=== PATIENT | female | born 1965 | race Caucasian/White ===

== ENCOUNTER 2019-05-14 07:30 | Day surgery (SDC) | payer MEDICAID, SELFPAY ==
[2019-05-13 14:29] VITALS: BMI 31.6
[2019-05-13 14:32] VITALS: BMI 33.3
--- NOTE | 2019-05-14 08:26 | ANES.PREANES ---
Pre-Anesthetic Assessment Pre-Anesthetic Assessment: Height/Weight: Height 1.63 m Weight 87.997 kg Preop Diagnosis: red blood per rectum Proposed Procedure: Operation Date: 05/14/19 08:45 Proposed Procedures p Colonoscopy(Not Applicable) - Layo Aldana MD Last intake: Intake Last Liquid Date 05/13/19 Last Liquid Time 23:30 Last Solid Date 05/12/19 Social: Social History: Tobacco Packs per day: 1 ppd Pack years: 30 years Exam: Pre-Anes Outpt Exam: alert, oriented x 3, clear to auscultation bilaterally and regular rate & rhythm Airway: Submandibular: WNL Cervical ROM: WNL MP: 2 Dentition: Chipped Additional comments: some missing with upper plate History/ROS: Other Pulmonary: Pulmonary: COPD, Sleep apnea and SOB CV/HEM: CV/HEM: HTN : : None reported Hepatic: Hepatic: None reported GI: GI: None reported Metabolic: Metabolic: DM (type II) and Hyperlipidemia Musc/skel: Musc/skel: Lower Back Pain (DJD) and OA/DJD Neuropsych: Neuropsych: None reported Anesthetic Plan: ASA status: II Anesthesia: MAC Risk of > 500 ml blood loss (7ml/kg in children): No PFSH Anesthesia PFSH: Social History (Updated 05/13/19 @ 14:23 by Kerri Marquez RN) Smoking and tobacco status: current every day smoker Data Anesthesia Cardiac Studies: No Data to Display
[2019-05-14] MEDS: sodium chloride 0.9% 1,000 ML 30 ML (08:30)
[2019-05-14 08:36] LABS: Glucose Point of Care 149 mg/dL (70-110)
--- NOTE | 2019-05-14 08:44 | PM.HPUD ---
H&P update H&P Update: DATE OF SURGERY/PROCEDURE: 05/14/19 DATE H&P PERFORMED: 04/17/19 H&P UPDATE INFORMATION: H&P completed within last 30 days, No changes to prior documentation and H&P to be scanned into chart PREOP DIAGNOSIS: Screening colonoscopy PLANNED PROCEDURE: Operation Date: 05/14/19 08:45 Proposed Procedures p Colonoscopy(Not Applicable) - Layo Aldana MD Full H&P Perinent History: Social History: Social History Smoking and tobacco status: current every day smoker
[2019-05-14 09:14] VITALS: BP 98/66; PULSE 81; RESP 18; TEMP 36.4; O2SAT 95
--- NOTE | 2019-05-14 09:19 | ANE.PACU ---
 Inpatient post-anesthesia follow up: Airway intact: Yes Vital signs: Temperature Pulse Rate Respiratory Rate Blood Pressure Pulse Oximetry Oxygen Delivery Me thod Oxygen Flow Rate Fraction of Inspir ed Oxygen Hydration adequate: Yes Nausea and vomiting: No Pain level: 1 Mental status: Baseline
[2019-05-14 09:39] VITALS: BP 109/69; PULSE 81; RESP 18; O2SAT 93
== END 2019-05-14 10:02 | disposition home or self-care (01) ==
PROVIDERS: Family Provider Family Medicine; PCP Family Medicine; Visit Provider Surgery
PROC: 0DJD8ZZ Inspection of Lower Intestinal Tract, Via Natural or Artificial Opening Endoscopic (ICD-10-PCS; CPT 45378; principal; 2019-05-14 08:45)
DX: K62.5 Hemorrhage of anus and rectum (principal); K57.30 Diverticulosis of large intestine without perforation or abscess without bleeding; D12.8 Benign neoplasm of rectum; F17.210 Nicotine dependence, cigarettes, uncomplicated; J44.9 Chronic obstructive pulmonary disease, unspecified; G47.30 Sleep apnea, unspecified; I10 Essential (primary) hypertension; E11.9 Type 2 diabetes mellitus without complications; E78.5 Hyperlipidemia, unspecified; M19.90 Unspecified osteoarthritis, unspecified site
CPT/HCPCS: 12345; 36416; 45380; 82962; 88305; 96365; J2704; J7030

== ENCOUNTER → 2019-06-03 15:26 | Outpatient (BNVA) | payer MEDICAID, SELFPAY | PROVIDERS: Family Provider Family Medicine; PCP Family Medicine; Visit Provider Family Medicine | DX: E11.9 Type 2 diabetes mellitus without complications (principal); I10 Essential (primary) hypertension; R74.8 Abnormal levels of other serum enzymes | CPT/HCPCS: 80053; 80074 ==

== ENCOUNTER → 2019-07-02 14:50 | Outpatient (BNVA) | payer MEDICAID, SELFPAY | PROVIDERS: Family Provider Family Medicine; PCP Family Medicine; Visit Provider Family Medicine | DX: I10 Essential (primary) hypertension (principal); G47.00 Insomnia, unspecified; E11.9 Type 2 diabetes mellitus without complications | CPT/HCPCS: 80048 ==

== ENCOUNTER → 2020-01-13 14:32 | Outpatient (BNVA) | payer MEDICAID, SELFPAY | PROVIDERS: Family Provider Family Medicine; PCP Family Medicine; Visit Provider Family Medicine | DX: R05 Cough (principal); Z20.828 Contact with and (suspected) exposure to other viral communicable diseases | CPT/HCPCS: 87635 ==

== ENCOUNTER 2020-05-01 12:16 | Emergency (ER) | payer MEDICAID, SELFPAY ==
[2020-05-01 12:23] VITALS: BP 116/81; PULSE 124; RESP 20; TEMP 36.4; O2SAT 99; BMI 32.4
--- NOTE | 2020-05-01 13:05 | ED_ITS ---
HPI - SOB/Dyspnea General: Chief Complaint: Shortness of Breath/Dyspnea Stated Complaint: cough sob/dx'd with bronchitis Time Seen by Provider: 05/01/20 12:55 Source: patient Mode of arrival: ambulatory History of Present Illness: HPI Narrative: 54-year-old female presents to the emergency room chief complaint of shortness of breath is been ongoing progressive getting worse over the last 5 to 7 days. The patient was recently seen at outside urgent care diagnosed with bronchitis started on steroids and antibiotics. Patient reports no improvement of her symptoms. Patient does have a history of smoking history of COPD reports no underlying cardiac history. Patient reports mild productivity of her cough reports yellowish clear sputum production. Reports no palpitations or chest pain with her discomfort. Patient reports lysed malaise and fatigue and generalized weakness. MD elicited complaint: shortness of breath and cough Pertinent past history: COPD Relieving factors: nothing Known history of: COPD and recurrent pneumonia Associated symptoms: Deny abdominal pain, chest pain, extremity pain, fever(s), nausea, palpitations or vomiting Related Data: Home oxygen amount: none Review of Systems General: Reports: 10 or more systems reviewed and unremarkable except in HPI and below Const: Reports: fatigue and malaise; Denies: fever(s) or chills Eyes: Denies: change in vision or blurry vision Card: Denies: chest pain or palpitations Resp: Reports: dyspnea, productive cough, wheezing and change in phlegm color GI: Denies: abdominal pain, nausea or vomiting : Denies: flank pain Musc: Denies: extremity pain or extremity swelling Skin/Breast: Denies: rash or pruritus Neuro: Denies: headache(s) Psych: Denies: anxiety or depression [place]/Lymph: Denies: easy bleeding All/Imm: Denies: urticaria, throat swelling or facial swelling PFSH ED PFSH: Medical History Chronic back pain COPD (chronic obstructive pulmonary disease) COPD (chronic obstructive pulmonary disease) with acute bronchitis Diabetes mellitus, without long-term current use of insulin History of colon polyps Hypertension Insomnia Lumbar spondylolysis Lumbosacral spondylosis with radiculopathy Spondylolisthesis, lumbosacral region Surgical History H/O section x3 Family History Other CAD (coronary artery disease) Diabetes Hypertension Stroke Social History Smoking and tobacco status: current every day smoker cigarettes Packs smoked per day: 1 Alcohol intake: never Marital status: Single Current occupational status: disabled History of recent travel: No Deja/Judaism: Denominational Physical Exam Narrative: EXAM NARRATIVE: On exam patient is mild to moderate inspiratory expiratory wheezing mild tachypnea appreciated patient who appears nontoxic. Const: COMMON NORMALS: patient oriented x3 EXAM LIMITATIONS: altered mental status GENERAL APPEARANCE: cooperative, well developed and anxious HENMT: COMMON NORMALS: normocephalic and atraumatic HEAD & SCALP: normocephalic and atraumatic Eye: COMMON NORMALS: Equal, round and reactive pupils present and EOMs intact bilaterally GENERAL EYE: appearance normal, both eyes and all related structures PUPIL: Yes Equal, round and reactive pupils present Neck/C-Spine: COMMON NORMALS: full ROM, supple and no JVD Lymph: LYMPHATIC: no lymphadenopathy noted Chest: COMMONS NORMALS: normal inspection of the chest Resp: COMMON NORMALS: normal respiratory effort, No retractions and clear to auscultation bilaterally EFFORT & INSPECTION: Yes able to speak in complete sentences and Yes symmetric chest movement AUSCULTATION: clear to auscultation bilaterally, wheezes (Bilateral inspiratory expiratory wheezing noted bilaterally scant) expiratory wheezes, inspiratory wheezes and scattered wheezes and diminished lung sounds (Diminished breath sounds appreciated bilaterally with scant inspiratory and) bilateral and diffuse Cardio: COMMON NORMALS: no JVD, regular rate and regular rhythm RATE: regular rate RHYTHM: regular rhythm GI: COMMON NORMALS: Normal to inspection, nondistended, normoactive bowel sounds present, Soft to palpation and non-tender INSPECTION: Yes normal to inspection PALPATION: Yes Soft to palpation : COMMON NORMALS: Yes no CVA tenderness BLADDER/KIDNEY EXAM: Yes no CVA tenderness Back/Pelvis: COMMON NORMALS: no CVA tenderness Extremity: COMMON NORMALS: normal to inspection and full ROM Neuro: COMMON NORMALS: patient oriented x3, CN's II-XII intact bilaterally, moves all extremities and no focal motor deficits Psych: COMMON NORMALS: mental status grossly normal, Normal thought process present, cooperative, normal affect and speech normal SPEECH: Yes normal speech THOUGHT PROCESS: Normal thought process present Skin: COMMON NORMALS: no rashes or lesions noted GENERAL SKIN EXAM: no rashes or lesions noted Course Vital Signs: Vital signs: Vital Signs Temperature 97.6 F 05/01/20 12:23 Pulse Rate 100 05/01/20 13:34 Respiratory Rate 20 H 05/01/20 13:25 Blood Pressure 116/81 05/01/20 12:23 Pulse Oximetry 97 05/01/20 13:25 MDM - SOB/Dyspnea MDM Narrative: Medical decision making narrative: Due to patient's symptoms and condition IV was established lab work and imaging was obtained patient was provided medications for her wheezing will continue to follow the full earlier rule out COPD exacerbation versus acute bronchitis versus pneumonia versus other . Patient was not found to have pneumonia appears to be bronchitis she was found to be somewhat hyponatremic however her blood sugar was 340 she reported she did not take her medications for her diabetes and what she has been on steroids recently which may be contributing to hyperglycemia patient was subsequently discharged home advised to follow-up with primary care in 3 to 5 days and to return in the interim if any of her symptoms persist or worse. Differential Diagnosis: Shortness of Breath Differential Diagnosis: Likely acute exacerbation of chronic obstructive airways disease, community acquired pneumonia and asthma with exacerbation Medical Records: Attestation: I reviewed the patient's medical records. Lab Data: Attestation: I reviewed the patient's lab results. Labs: Lab Results 05/01/20 05/01/20 05/01/20 Range/Units 15:47 15:47 15:47 WBC 12.5 H (4.0-10.0) 10^3/ uL RBC 5.47 H (4.1-5.3) 10^6/u L Hgb 17.0 H (11.5-15.3) g/dL Hct 48.4 H (37.0-47.0) % MCV 88.5 (81-99) fL MCH 31.1 (28.0-34.0) pg MCHC 35.1 (30.0-36.0) g/dL RDW 12.1 (12.1-15.1) % Plt Count 196 (130-400) 10^3/c mm MPV 12.6 H (7.4-10.4) fL Neut % (Auto) 46.1 % Lymph % (Auto) 45.8 % [place] % (Auto) 6.7 % Eos % (Auto) 0.6 % Baso % (Auto) 0.4 % Neut # (Auto) 5.79 (1.8-7.7) 10^3/u L Lymph # (Auto) 5.7 H (0.8-4.8) 10^3/u L [place] # (Auto) 0.8 (0.2-0.9) 10^3/u L Eos # (Auto) 0.1 (0.0-0.8) 10^3/u L Baso # (Auto) 0.1 (0.0-0.1) 10^3/u L Nucleated RBC % (a uto) 0 % Nucleated RBCs # 0.0 /100WBC Sodium Cancelled Potassium Cancelled Chloride Cancelled Carbon Dioxide Cancelled Anion Gap Cancelled BUN Cancelled Creatinine Cancelled GFR Calculation Cancelled Glucose Cancelled Calculated Osmolal ity Cancelled Calcium Cancelled Total Bilirubin Cancelled AST Cancelled ALT Cancelled Alkaline Phosphata se Cancelled Lactate Dehydrogen ase Cancelled Troponin T Baselin e Cancelled C-Reactive Protein Cancelled Total Protein Cancelled Albumin Cancelled Globulin Cancelled 05/01/20 05/01/20 Range/Units 16:15 16:15 WBC (4.0-10.0) 10^3/ uL RBC (4.1-5.3) 10^6/u L Hgb (11.5-15.3) g/dL Hct (37.0-47.0) % MCV (81-99) fL MCH (28.0-34.0) pg MCHC (30.0-36.0) g/dL RDW (12.1-15.1) % Plt Count (130-400) 10^3/c mm MPV (7.4-10.4) fL Neut % (Auto) % Lymph % (Auto) % [place] % (Auto) % Eos % (Auto) % Baso % (Auto) % Neut # (Auto) (1.8-7.7) 10^3/u L Lymph # (Auto) (0.8-4.8) 10^3/u L [place] # (Auto) (0.2-0.9) 10^3/u L Eos # (Auto) (0.0-0.8) 10^3/u L Baso # (Auto) (0.0-0.1) 10^3/u L Nucleated RBC % (a uto) % Nucleated RBCs # /100WBC Sodium 128 L Potassium 4.5 Chloride 94 L Carbon Dioxide 24 Anion Gap 14.5 BUN 15 Creatinine 0.5 GFR Calculation 129.6 Glucose 341 H Calculated Osmolal ity 280 L Calcium 8.8 Total Bilirubin 0.6 AST 25 ALT 24 Alkaline Phosphata se 117 H Lactate Dehydrogen ase 216 H Troponin T Baselin e 6 C-Reactive Protein 13.8 H Total Protein 6.5 L Albumin 3.5 Globulin 3.0 Discharge Plan Discharge Patient Disposition: Home Clinical Impression: Acute bronchitis with wheezing, Hyponatremia Condition: Stable Prescriptions: New Ventolin HFA 90 mcg/actuation HFA aerosol inhaler 1 inh inhalation Q6H PRN (Reason: shortness of breath or wheezing) Qty: 6.7 RF: 0 prednisone 20 mg tablet 20 mg PO BID 7 Days Qty: 14 RF: 0 Tessalon Perles 100 mg capsule 100 mg PO TID PRN (Reason: cough) Qty: 20 RF: 0 No Action albuterol sulfate 90 mcg/actuation HFA aerosol inhaler 2 puff inhalation Q6H PRN (Reason: shortness of breath or wheezing) Qty: 8.5 RF: 0 fluticasone propion-salmeterol [Advair Diskus] 250-50 mcg/dose blister with device 1 inh inhalation BID Qty: 60 RF: 1 Tylenol Extra Strength 500 mg Tablet 1,000 mg PO PRN RF: 0 amitriptyline 50 mg tablet 50 mg PO DAILY@22 RF: 0 lisinopril 40 mg tablet 40 mg PO DAILY@22 RF: 0 metformin 500 mg tablet extended release 24 hr 1,000 mg PO BID@, RF: 0 hydrochlorothiazide 12.5 mg tablet 12.5 mg PO DAILY@22 RF: 0 Discharge Orders: Discharge ED (Routine); Ordered 05/01/20 Ordered By: Chao Reynoso Referrals: Viviana Pringle DO [Primary Care Provider] - 4-7 days Patient Instructions: Hyponatremia, Acute Bronchitis (ED) Activity Restrictions/Additional Instructions: Follow-up with primary care in 3 to 5 days take medications as prescribed and return in the interim if any of her symptoms persist or worsen Coding Level of Care Code ED Parking Meter Collector for Chg Fwd Exam Comprehensive
[2020-05-01 13:25] VITALS: PULSE 107; RESP 20; O2SAT 97
[2020-05-01 13:34] VITALS: PULSE 100
[2020-05-01] MEDS: ipratropium-albuterol 3 mL Neb INHALATION (13:34)
--- NOTE | 2020-05-01 13:37 | XRR_ITS ---
PROCEDURE INFORMATION: Exam: XR Chest, 2 Views Exam date and time: 05/01/2020 2:04 PM Age: 54 years old Clinical indication: Shortness of breath; Additional info: SOB TECHNIQUE: Imaging protocol: XR of the chest Views: 2 views. COMPARISON: CR Chest 2 views* [id number] 11/17/2014 5:21 PM FINDINGS: Lungs: Hyperinflation and interstitial prominence without acute infiltrate. Pleural space: No pleural effusion. Heart/Mediastinum: No cardiomegaly. Bones/joints: Degenerative change. XR/XR chest 2V* [id number] IMPRESSION: Hyperinflation and interstitial prominence without acute infiltrate.
[2020-05-01] MEDS: sodium chloride 0.9% 1,000 ML 999 ML IV (13:59)
--- NOTE | 2020-05-01 15:04 | ECG_ITS ---
[facility] Test Date: 2020-05-01 Pat Name: Ciera Villaseñor Department: Room: Gender: Female Hair Assistant: : 1965 Requested By: Chao Reynoso Order Number: [id number] Irma MD: Clark Garcia M.D. Measurements Intervals [place] Rate: 120 P: 60 TN: 152 QRS: -28 QRSD: 84 T: 47 QT: 306 QTc: 432 Interpretive Statements SINUS TACHYCARDIA Compared to ECG 11/17/2014 16:58:41 Sinus rhythm no longer present Electronically Signed On 05-01-2020 17:59:14 ORDER SELECTOR by Clark Garcia M.D. [id number] f
[2020-05-01 16:02] LABS: Basophils # 0.1 10^3/uL (0.0-0.1); Basophils % 0.4 %; Eosinophils # 0.1 10^3/uL (0.0-0.8); Eosinophils % 0.6 %; Hematocrit 48.4 % (37.0-47.0); Lymphocytes # 5.7 10^3/uL (0.8-4.8); Lymphocytes % 45.8 %; Mean Corpuscular HGB Conc 35.1 g/dL (30.0-36.0); Mean Corpuscular Hemoglobin 31.1 pg (28.0-34.0); Mean Corpuscular Volume 88.5 fL (81-99); Mean Platelet Volume 12.6 fL (7.4-10.4); Monocytes # 0.8 10^3/uL (0.2-0.9); Monocytes % 6.7 %; Neutrophils # 5.79 10^3/uL (1.8-7.7); Neutrophils % 46.1 %; Nucleated Red Blood Cells % 0 %; Platelet Count 196 10^3/cmm (130-400); Red Blood Count 5.47 10^6/uL (4.1-5.3); Red Cell Distribution Width 12.1 % (12.1-15.1); White Blood Count 12.5 10^3/uL (4.0-10.0)
[2020-05-01 16:34] LABS: Slide Review Slide Review Perform
[2020-05-01 16:38] LABS: Albumin Level 3.5 g/dL (3.5-5.2); Alkaline Phosphatase 117 IU/L (35-105); Blood Urea Nitrogen 15 mg/dL (6-20); C Reactive Protein 13.8 mg/L (0.0-4.9); Calcium 8.8 mg/dL (8.5-10.5); Carbon Dioxide 24 mmol/L (22-29); Chloride 94 mmol/L (98-107); Glomerular Filtration Rate 129.6 mL/min (90-130); Glucose 341 mg/dL (65-115); Osmolality Calculated 280 mOsm/kg (285-295); Sodium 128 mmol/L (136-145); Total Bilirubin 0.6 mg/dL (0.15-1.2); Total Protein 6.5 g/dL (6.6-8.7)
[2020-05-01 16:39] LABS: Alanine Aminotransferase 24 U/L (0-33); Anion Gap 14.5 (5-19); Aspartate Amino Transferase 25 U/L (0-32); Lactate Dehydrogenase 216 U/L (135-214); Potassium 4.5 mmol/L (3.5-5.1)
[2020-05-01 16:40] LABS: Troponin(5th) Baseline 6 ng/L (0-10)
[2020-05-01 18:28] LABS: Troponin 5 2HR Delta 0 ABS# (0-10)
[2020-05-01 18:29] VITALS: BP 166/61; PULSE 72; RESP 16; O2SAT 96
== END 2020-05-01 18:10 | disposition home or self-care (01) ==
PROVIDERS: Emergency Provider Emergency Medicine; PCP Family Medicine
DX: J44.0 Chronic obstructive pulmonary disease with (acute) lower respiratory infection (principal); J20.9 Acute bronchitis, unspecified; E87.1 Hypo-osmolality and hyponatremia; Z79.84 Long term (current) use of oral hypoglycemic drugs; E11.9 Type 2 diabetes mellitus without complications; I10 Essential (primary) hypertension; F17.210 Nicotine dependence, cigarettes, uncomplicated
CPT/HCPCS: 12345; 36415; 71046; 80053; 83615; 84484; 85025; 86140; 93005; 94640; 96361; 96374; 99282; 99285; J2930; J7030

== ENCOUNTER → 2020-06-21 14:17 | Outpatient (BNVA) | payer MEDICAID, SELFPAY | PROVIDERS: PCP Family Medicine; Visit Provider Family Medicine | DX: R73.9 Hyperglycemia, unspecified (principal); R25.2 Cramp and spasm | CPT/HCPCS: 80053; 83036 ==

== ENCOUNTER 2020-08-02 09:20 | Outpatient (CLI) | payer MEDICAID, SELFPAY ==
--- NOTE | 2020-08-02 09:31 | XR_ITS ---
WS: [id number] ABDOMEN 1 VIEW(S) HISTORY: left flank pain COMPARISON: None available. Normal bowel gas pattern. No calcifications associated with the urological system. Vascular calcifications in the iliac arterie s. There is dense iliolumbar ligament ossification bilaterally at L5. XR/XR KUB [id number] IMPRESSION: 1. No urological calcifications. 2. Mild iliac artery atherosclerosis. 3. Dense bilateral iliolumbar ligament ossification at L5.
== END 2020-08-02 09:21 | disposition home or self-care (01) ==
PROVIDERS: PCP Family Medicine; Visit Provider Family Medicine
DX: R10.9 Unspecified abdominal pain (principal); I70.8 Atherosclerosis of other arteries; M67.88 Other specified disorders of synovium and tendon, other site
CPT/HCPCS: 74018; 80053; 80061; 81000; 81015; 82043; 85025; 87077; 87086; 87184

== ENCOUNTER → 2020-09-13 08:29 | Outpatient (BNVA) | payer MEDICARE, MEDICAID, SELFPAY | PROVIDERS: PCP Family Medicine; Visit Provider Family Medicine | DX: I10 Essential (primary) hypertension (principal); E78.5 Hyperlipidemia, unspecified; E11.9 Type 2 diabetes mellitus without complications; M47.27 Other spondylosis with radiculopathy, lumbosacral region; F17.219 Nicotine dependence, cigarettes, with unspecified nicotine-induced disorders | CPT/HCPCS: 80053; 80061; 82043; 83036; 85025 ==

== ENCOUNTER → 2020-09-23 15:12 | Outpatient (BNVA) | payer MEDICARE, MEDICAID, SELFPAY | PROVIDERS: PCP Family Medicine; Referring Provider Family Medicine; Visit Provider Orthopaedic Surgery | DX: M43.17 Spondylolisthesis, lumbosacral region (principal); M54.9 Dorsalgia, unspecified; G89.29 Other chronic pain; M48.061 Spinal stenosis, lumbar region without neurogenic claudication | CPT/HCPCS: 72110 ==

== ENCOUNTER → 2020-10-18 11:21 | Outpatient (BNVA) | payer MEDICARE, MEDICAID, SELFPAY | PROVIDERS: PCP Family Medicine; Visit Provider Family Medicine | DX: Z01.818 Encounter for other preprocedural examination (principal); Z20.822 Contact with and (suspected) exposure to COVID-19 | CPT/HCPCS: 80053; 85025; 87635 ==

== ENCOUNTER 2020-10-25 10:41 | Observation (INO) | payer MEDICARE, MEDICAID, SELFPAY ==
[2020-10-22 11:31] VITALS: BMI 30.6
--- NOTE | 2020-10-22 11:40 | P.ANESASSM_ITS ---
Pre-Anesthetic Assessment Pre-Anesthetic Assessment: Height/Weight: Height 1.6 m Weight 78.471 kg Preop Diagnosis: Low back pain Proposed Procedure: Operation Date: 10/25/20 10:00 Proposed Procedures p Posterior Lumbar Interbody Fusion [id number] [id number] M43.17(Not Applicable) - Kvng Mitchell DO Familial anesthetic complications: No Social: Social History: Tobacco and No alcohol Exam: Pre-Anes Outpt Exam: alert, oriented x 3, clear to auscultation bilaterally and regular rate & rhythm Airway: Cervical ROM: WNL MP: 3 Dentition: Loose (one on bottom) and Other (top plate) Pulmonary: Pulmonary: COPD CV/HEM: CV/HEM: HTN Comments: achieving 4 METS limited by back pain Metabolic: Metabolic: DM and Hyperlipidemia Musc/skel: Musc/skel: Lower Back Pain Anesthetic Plan: ASA status: 3 Anesthesia: General Risk of > 500 ml blood loss (7ml/kg in children): No PFSH Anesthesia PFSH: Medical History Chronic back pain COPD (chronic obstructive pulmonary disease) COPD (chronic obstructive pulmonary disease) with acute bronchitis Diabetes mellitus, without long-term current use of insulin Dyslipidemia History of colon polyps Hypertension Insomnia Lumbar spondylolysis Lumbosacral spondylosis with radiculopathy Spondylolisthesis, lumbosacral region Surgical History H/O section x3 Family History Other CAD (coronary artery disease) Diabetes Hypertension Stroke Social History Smoking and tobacco status: current every day smoker cigarettes Packs smoked per day: 1 Alcohol intake: never Marital status: Single Current occupational status: disabled History of recent travel: No Deja/Orthodoxy: Mosque Female Reproductive History: Date of last menstrual period: 10/18/16 Data Anesthesia Cardiac Studies: No Data to Display
[2020-10-25] VITALS (19 sets, daily range): BP systolic 84–131; BP diastolic 50–80; PULSE 81–107; RESP 16–20; TEMP 36.2–36.9; O2SAT 92–100
--- NOTE | 2020-10-25 | XR_ITS ---
WS: [id number] INTRAOPERATIVE TECHNIQUE: 3 Spot fluoroscopic images for intraoperative purposes. FLUOROSCOPY TIME: 20 seconds CLINICAL INFORMATION: OR PICS COMPARISON: None. FINDINGS: AP localizer at L5-S1. Pedicle screw fixation L5-S1 with interbody fusion graft. Localization markers overlying the S1 and S2 vertebral bodies. Grade 2 anterolisthesis L5 on S1. IMPRESSION: Images obtained for intraoperative purposes.
--- NOTE | 2020-10-25 | SCC_ITS ---
Procedure Done: 1. L5/S1 Interbody fusion with posterolateral fusion 2. Instrumentation L5/S1 3. Cage at L5/S1 4. Laminectomy L5 5. use of autograft from same incision 6. allograft 7. Bone marrow aspirate from right iliac crest 8. Use of spine navigation computer assisted/ stereotactic 20 seconds of fluoroscopic guidance, for a cumulative dose of 44.7 mGy, was provided to Dr. Mitchell by the radiology department. C-arm images of the lumbar spine were saved for the patient's permanent record. ANGEL
[2020-10-25] MEDS: sodium chloride 0.9% 1,000 ML 30 ML IV (06:30)
--- NOTE | 2020-10-25 06:38 | P.ANESUD_ITS ---
Pre-Anesthetic Update Pre-Anesthetic Assessment: Date of Surgery/Procedure: 10/25/20 Preop Cheryl gnosis: Low back pain Proposed Procedure: Operation Date: 10/25/20 07:05 Proposed Procedures p Posterior Lumbar Interbody Fusion [id number] [id number] [id number] M43.17(Not Applicable) - Kvng Mitchell, DO Any changes to Pre-Anesthetic Assessment?: No Last Intake: Intake Last Liquid Date 10/24/20 Last Liquid Time 22:30 Last Solid Date 10/24/20 Last Solid Time 22:30 Vitals: Temperature 97.2 F L 10/25/20 06:14 Temperature Source Temporal Artery S can 10/25/20 06:14 Pulse Rate 97 10/25/20 06:14 Respiratory Rate 18 10/25/20 06:14 Blood Pressure 106/75 10/25/20 06:14 Blood Pressure Leora n 85 10/25/20 06:14 Pulse Oximetry 96 10/25/20 06:14 Oxygen Delivery Me thod 10/25/20 06:14 Exam: Pre-Anes Outpt Exam: alert, oriented x 3, clear to auscultation bilaterally and regular rate & rhythm Cardiac Studies: No Data to Display
[2020-10-25 06:44] LABS: Glucose Point of Care 148 mg/dL (70-110)
--- NOTE | 2020-10-25 06:48 | W.PM.OPSUD ---
Surgery/Procedure H&P Update DATE OF PROCEDURE: October 25, 2020 DATE H&P PERFORMED: 10/25/20 PREOP DIAGNOSIS: Low back pain PLANNED PROCEDURE: Operation Date: 10/25/20 07:05 Proposed Procedures p Posterior Lumbar Interbody Fusion [id number] [id number] M43.17(Not Applicable) - Kvng Mitchell DO
--- NOTE | 2020-10-25 06:50 | P.HP_ITS ---
Providers/Chief Complaint Primary Care Provider: Viviana Pringle DO Chief Complaint: plif History of Present Illness Ciera Villaseñor is a 54 year old female 54 year old female patient here for evaluation of her low back pain. Onset: [gradual] Duration: [years] Characteristics: [sharp, dull, aching] Severity: [moderate] Location: [low back] Radiating symptoms: [right lateral thigh] Aggravating factors: [standing, walking, bending, stooping, sitting] Alleviating factors: [repositioning] Neuro deficits: numbness, tingling, & weakness right lower extrimity, no incontinence of bowel/bladder, or saddle anesthesia. Prior tx: [injections with pain management, PT, narcotic pain medications, anti- inflammatories] Review of Systems Narrative: General ROS: negative for weight changes, fever ENT ROS: negative for nasal congestion, drainage or bleeding, sore throat, dysphagia or ear pain Eyes: PERRL Hematological and Lymphatic ROS: negative for swollen glands or abnormal bleeding Endocrine ROS: negative for polyuria/polydpsia or new changes in weight Respiratory ROS: negative for cough, shortness of breath, or wheezing Cardiovascular ROS: negative for chest pain or dyspnea on exertion Gastrointestinal ROS: negative for reflux, abdominal pain, change in bowel habits, or black or bloody stools Musculoskeletal ROS: negative for back pain, neck pain, or joint pain or swelling except for current problem Neurological ROS: negative for TIA or stoke symptoms Skin: no rashes Medications/Allergies Home Medications Medication Instructions Recorded Confirmed Last Taken Type albuterol sulfate [Ventolin HFA] 1 inh INHALATION Q6H PRN #6.7 g 05/01/20 10/22/20 10/08/20 Rx amitriptyline 50 mg tablet 50 mg PO DAILY@22 #90 tab 08/02/20 10/25/20 10/24/20 22:00 Rx lisinopril 20 mg tablet 20 mg PO DAILY #90 tab 08/02/20 10/25/20 10/24/20 22:00 Rx naproxen 500 mg tablet 500 mg PO BID PRN #60 tab 09/13/20 10/22/20 10/17/20 Rx canagliflozin 100 mg tablet 100 mg PO QAM #30 tab 09/29/20 10/22/20 10/22/20 Rx simvastatin 20 mg tablet 20 mg PO DAILY #45 tab 09/29/20 10/25/20 10/24/20 22:00 Rx tizanidine 4 mg tablet 4 mg PO TID PRN #60 tab 09/29/20 10/25/20 10/24/20 22:00 Rx metformin 500 mg tablet,extended See Rx Instructions .ROUTE 10/14/20 10/25/20 22:00 Rx release 24 hr .COMPLEX #60 tab Allergies Allergy/AdvReac Type Severity Reaction Status Date / Time No Known Allergies Allergy Verified 10/25/20 06:11 PFSH Acute PFSH: Medical History Chronic back pain COPD (chronic obstructive pulmonary disease) COPD (chronic obstructive pulmonary disease) with acute bronchitis Diabetes mellitus, without long-term current use of insulin Dyslipidemia History of colon polyps Hypertension Insomnia Lumbar spondylolysis Lumbosacral spondylosis with radiculopathy Spondylolisthesis, lumbosacral region Surgical History H/O section x3 Family History Other CAD (coronary artery disease) Diabetes Hypertension Stroke Social History Smoking and tobacco status: current every day smoker cigarettes Packs smoked per day: 1 Alcohol intake: never Marital status: Single Current occupational status: disabled History of recent travel: No Deja/Pentecostalism: Yarsanism Female Reproductive History: Date of last menstrual period: 10/18/16 Vitals/I&O/Wt Last Vital Signs Temp 97.2 F L 10/25/20 06:14 Pulse 97 10/25/20 06:14 Resp 18 10/25/20 06:14 BP 106/75 10/25/20 06:14 Pulse Ox 96 10/25/20 06:14 Physical Exam Narrative: EXAM NARRATIVE: CONSTITUTIONAL: The patient is a normal appearing [] in no apparent distress. GENERAL: Patient in no acute distress. CARDIAC: Regular rate and rhythm. CHEST: Normal inspiratory effort, normal respiratory rate. ABDOMEN: Soft and nontender. SKIN: Clear, warm and intact. NEURO?PSYCH: The patient is alert and oriented to person, place and time. Sensorv /SILT Motor StrengthShoulder abduction C5 5/5Wrist extension C6 5/5Elbow extension C7 5/5Hand Pedigree Tracer C8 5/5Finger abduction T15/5 Radial/ Ulnar/ Median n intact LowerSensory (SILT)Motor StrengthHin flexion L2/3Ant/inner thigh 5/5Hip adduction L2/3 5/5Knee extension L4 Lat thigh, 5/5Toe dorsiflexion L5 5/5Ankle dorsiflexion L5/ X93Hrynhgw flexion S1 5/5 DTRBleeps 2+Triceps 2+Brachioradialis 2+Patellar 2+Achilles 2+ MUSCULOSKELETAL: [] UPPEREXTREMITIES: The patient had full active ROM in fingers, wrist, elbow, and shoulder. The patient demonstrated ability to fully flex/extend/abduct/adduct fingers, make ok sign, cross 2nd/3rd digits, extend 1st digit fully.. Radial pulse 2+, CR<2 seconds. LOWER EXTREMITIES: Pt has full, active ROM of toes, ankle, knee, and hip. Dorsalis pedis/posterior tibialis pulses 2+, CR<2 seconds. SPINE: Skin warm, dry, intact. A&P Assessment and plan (1) Lumbar spondylolysis: L5/S1 PLIF Status: Acute Attestations Medical Necessity Statement*: failed conservative tx Coding Level of Care Code Acute Multifocal Lens Assembler for Chemo Fwd Diagnoses Lumbar spondylolysis M43.06
--- NOTE | 2020-10-25 07:52 | SUR.OPER ---
family updated of surgical status
[2020-10-25] MEDS: heparin, porcine 1,000 unit/mL INJ 10 mL 10000 UNIT XX (07:59)
--- NOTE | 2020-10-25 08:57 | SUR.OPER ---
family updated of surgical status
--- NOTE | 2020-10-25 09:54 | SUR.OPER ---
family updated of surgical status.
[2020-10-25] MEDS: vancomycin 1,000 MG SDV 1000 MG XX (09:59)
--- NOTE | 2020-10-25 10:29 | P.OP_ITS ---
Operative Report Date of procedure: October 25, 2020 Pre-op Diagnosis: L5/S1 spondylolisthesis; lumbar stenosis Post-op diagnosis: same Procedure Done: 1. L5/S1 Interbody fusion with posterolateral fusion 2. Instrumentation L5/S1 3. Cage at L5/S1 4. Laminectomy L5 5. use of autograft from same incision 6. allograft 7. Bone marrow aspirate from right iliac crest 8. Use of spine navigation computer assisted/ stereotactic Anesthesia: General Estimated blood loss (mL): 100 Condition: stable Disposition: PACU Procedure: 1. L5/S1 Interbody fusion with posterolateral fusion 2. Instrumentation L5/S1 3. Cage at L5/S1 4. Laminectomy L5 5. use of autograft from same incision 6. allograft 7. Bone marrow aspirate from right iliac crest 8. Use of spine navigation computer assisted/ stereotactic Patient is brought to the operative suite. After undergoing anesthesia, the patient had neuro monitoring attached. Patient was then placed in the prone position on the Axel table. All areas of impingement were well-padded. Patient was then prepped and draped in the normal sterile fashion. Skin incision was then made over the Subperiosteal dissection was made out to the transverse processes of L5 and ala of S1. Once the exposure was complete attention was then brought to connecting the fiducial. The 2 pins were placed in the right iliac crest. Then the fiducial was connected and links to the computer. Then the the C arm spin was done and the computer information was linked. Prior to placing the pedicle screws the [employer] bone marrow aspirate kit was used to aspirate bone marrow aspirate from the right iliac crest. This was done by using the sharp probe to open up the bone. Aspiration was performed and then the blunt probe was then used to dissect down to through the bone tunnel. An aspirating well drawn back a millimeter approximately 20 cc of bone marrow aspirate was used. Admixed with the allograft and autograft bone that will be used. The technique for placing the pedicle screws was to use a drill followed by the gearshift probe attached to the computer navigation. Followed by the ball probe to feel the superior inferior medial lateral kelley of the pedicles. Then placement of the screws using computer navigation. Was done at each pedicle. Screws were placed at L5 bilaterally and S1. Next attention was brought to performing the laminectomy ofL5. This was done using the high-speed bur Kerrisons and curettes. Once the lamina was removed and then attention was brought to performing a partial facetectomy on the contralateral side. This was done again using the high-speed bur curettes and Kerrisons. The ligamentum flavum was taken down bilaterally from L5 to S1. Attention was then brought to the facet on the ipsilateral side. The facet was taken down. The S1 nerve was decompressed as it passed around the S1 pedicle. The laminectomy was done for purposes of decompressing the nerve as well as placement of the cage. The L5 nerve was identified as it traversed through the L5/S1 foramen. The thecal sac was identified and retracted. The L5/S1 disc base was identified. Using a knife the disc base was opened. And then sequential tia were placed. The first shaver was a 6 and the last shaver was a 7. Using a pituitary and down going curette the endplates were scraped and disc material was removed from the space. Once adequate decompression of the disc base was felt to be had. Osteoamp sponge was packed into the anterior aspect of the disc base. Then a size 7 cage from Post.Bid.Ship was placed after packing osteoamp into the cage. While placing the cage the thecal sac and S1 nerve was protected. C arm was used to ensure that the cages placed in the appropriate position. Attention was then brought to attaching the rods to the screws placed in the L5 bilaterally and S1 bilaterally. Caps were torqued into position. Locking the construct in place. Wound was copiously irrigated and then attention was brought to decorticating the facets and transverse processes laterally. Bone that was taken down from the lamina was used along with osteoamp fibers and sponges were packed into the lateral gutters along the facet joints. This was done bilaterally. Wound was then closed in a layered fashion starting with the thoracolumbar fascia. 0-sratafix was used the sub cutaneous tissue was closed with 2-0 stratafox and skin with Nylon. Glue was then used to seal the skin and a steril dressing was applied. Patient was then placed in the supine position. The endotracheal tube was removed and patient was transferred to the PACU in stable condition.
--- NOTE | 2020-10-25 10:42 | SUR.PHASEI ---
1042- ORAL AIRWAY REMOVED, SIMPLE MASK AT 6LPM SAT 100%
--- NOTE | 2020-10-25 11:00 | PM.CONSULT ---
Providers/Reason For Consult Consulting Physician/Specialty*: Victor Hugo Izquierdo MD, hospitalist Reason for Consult*: Diabetes, medical management Attending Physician: Victor Hugo Izquierdo MD Primary Care Provider: Viviana Pringle DO History of Present Illness History of Present Illness Ciera Villaseñor is a 54 year old female with history of chronic back pain who just underwent fusion of L5-S1. I am seeing her directly postoperative, and she is still somewhat sleepy secondary to the anesthesia that she has received. No complications were noted during surgery. It is planned she will go to the second floor for further recovery, possible discharge tomorrow if appropriate. Review of Systems General: Reports: ROS unobtainable due to mental status (Patient is sedate following her surgery and unable to answer questions rega) Meds/Allergies Home Medications and Allergies Home Medications Medication Instructions Recorded Confirmed Last Taken Type albuterol sulfate [Ventolin HFA] 1 inh INHALATION Q6H PRN #6.7 g 05/01/20 10/22/20 10/08/20 Rx amitriptyline 50 mg tablet 50 mg PO DAILY@22 #90 tab 08/02/20 10/25/20 10/24/20 22:00 Rx lisinopril 20 mg tablet 20 mg PO DAILY #90 tab 08/02/20 10/25/20 10/24/20 22:00 Rx naproxen 500 mg tablet 500 mg PO BID PRN #60 tab 09/13/20 10/22/20 10/17/20 Rx canagliflozin 100 mg tablet 100 mg PO QAM #30 tab 09/29/20 10/22/20 10/22/20 Rx simvastatin 20 mg tablet 20 mg PO DAILY #45 tab 09/29/20 10/25/20 10/24/20 22:00 Rx tizanidine 4 mg tablet 4 mg PO TID PRN #60 tab 09/29/20 10/25/20 10/24/20 22:00 Rx metformin 500 mg tablet,extended See Rx Instructions .ROUTE 10/14/20 10/25/20 10/24/20 22:00 Rx release 24 hr .COMPLEX #60 tab Allergies Allergy/AdvReac Type Severity Reaction Status Date / Time No Known Allergies Allergy Verified 10/25/20 06:11 Current Medications Current Medications Generic Name Dose Route Start Last Admin Trade Name Freq PRN Reason Stop Dose Admin Sodium Chloride 1,000 mls @ 30 mls/hr 10/25/20 06:15 10/25/20 09:17 Sodium Chloride 0.9% IV 10/26/20 06:14 Infused .Q24H IBIS Infusion PFSH Acute PFSH: Medical History (Updated 10/25/20 @ 11:05 by Victor Hugo Izquierdo MD) Chronic back pain COPD (chronic obstructive pulmonary disease) COPD (chronic obstructive pulmonary disease) with acute bronchitis Diabetes mellitus, without long-term current use of insulin Dyslipidemia History of colon polyps Hypertension Insomnia Lumbar spondylolysis Lumbosacral spondylosis with radiculopathy Spondylolisthesis, lumbosacral region Surgical History H/O section x3 Family History Other CAD (coronary artery disease) Diabetes Hypertension Stroke Social History Smoking and tobacco status: current every day smoker cigarettes Packs smoked per day: 1 Alcohol intake: never Marital status: Single Current occupational status: disabled History of recent travel: No Deja/Samaritan: [employer] Female Reproductive History: Date of last menstrual period: 10/18/16 Vitals/I&O/Wt Last Vital Signs Temp 98.4 F 10/25/20 10:55 Pulse 101 H 10/25/20 10:55 Resp 16 10/25/20 10:55 BP 85/52 10/25/20 10:55 Pulse Ox 94 10/25/20 10:55 10/24/20 10/25/20 10/25/20 22:59 06:59 14:59 Intake Total 1250 / 1250 Output Total 450 / 450 Balance 800 / 800 Physical Exam Narrative: EXAM NARRATIVE: General exam is a female, in no apparent distress, sleeping HEENT: Pupils are equally round. Oropharynx with oropharyngeal airway Neck is supple no lymphadenopathy or thyromegaly Cardiovascular regular rate and rhythm without murmur Lungs clear no wheezing or crackles Abdomen is soft, positive bowel sounds. Binder noted. No obvious organomegaly was deferred Extremities no cyanosis clubbing or edema, cap refill brisk Skin no rash Neuro no obvious focal deficits. Urinary Catheter Management^: Garrett: Cath Placed During This Visit: yes, but has since been removed by the nurse Urinary Catheter Date of Insertion: 10/25/20 Urinary Catheter Time of Insertion: 07:25 Date Urinary Catheter Removed: 10/25/20 Time Urinary Catheter Discontinued: 10:28 Data Other Data: Other data: Recent laboratory on October 18 demonstrated normal hemoglobin, normal platelet count, normal glucose, normal LFTs. Rapid Covid done at same time was negative. A&P Assessment and plan (1) Chronic back pain: Patient underwent fusion this morning of L5/S1. No complications with surgery. Dr. Mitchell is primary. Status: Acute (2) Diabetes mellitus, without long-term current use of insulin: Sliding scale insulin Consistent carb diet May continue Glucophage as no imaging with radiological dye is planned Status: Chronic Qualifiers: Diabetes mellitus type: type 2 Diabetes mellitus complication status: without complication Qualified Code(s): E11.9 - Type 2 diabetes mellitus without complications (3) Nicotine dependence, cigarettes, with unspecified nicotine-induced disorders: Will assistant counsel Status: Chronic (4) COPD (chronic obstructive pulmonary disease) with acute bronchitis: DuoNeb as needed Status: Acute (5) Dyslipidemia: Continue statin Status: Chronic (6) Hypertension: Continue EARNEST inhibitor Monitor Status: Chronic Qualifiers: Hypertension type: essential hypertension Qualified Code(s): I10 - Essential (primary) hypertension Additional A&P Information Full code Lovenox for DVT prophylaxis Consult Attestations Medical Necessity Statement: As per primary Time Spent in Patient Care: Greater than 35 minutes Coding Level of Care Code Acute Position Classification Manager for [facility] Fwd Diagnoses Chronic back pain M54.9; G89.29 Diabetes mellitus, without long-term current use of insulin E11.9 Diabetes mellitus type: type 2 Diabetes mellitus complication status: without complication Nicotine dependence, cigarettes, with unspecified nicotine-induced disorders F17.219 COPD (chronic obstructive pulmonary disease) with acute bronchitis J44.0; J20.9 Dyslipidemia E78.5 Hypertension I10 Hypertension type: essential hypertension
[2020-10-25] MEDS: ketorolac 30 mg/mL INJ IVP ×2 (11:33→20:35)
[2020-10-25] MEDS: lactated ringers 1,000 ML 90 ML IV ×2 (11:33→21:53)
[2020-10-25] MEDS: metformin XR 500 MG Tablet PO ×2 (12:42→21:53)
[2020-10-25] MEDS: HYDROcodone-acetaminophen 5-325 mg Tablet PO ×3 (13:50→21:53)
--- NOTE | 2020-10-25 15:32 | ANE.PACU2 ---
Inpatient post-anesthesia follow up: Airway intact: Yes Vital signs: Temperature 97.9 F Pulse Rate 97 Respiratory Rate 18 Blood Pressure 94/60 Pulse Oximetry 94 Oxygen Delivery Me thod Room Air Oxygen Flow Rate 6 Fraction of Inspir ed Oxygen Hydration adequate: Yes Nausea and vomiting: No Pain level: 2 Mental status: Baseline
[2020-10-25 17:05] LABS: Glucose Point of Care 210 mg/dL (70-110)
[2020-10-25] MEDS: docusate sodium 100 mg Capsule PO (17:22)
--- NOTE | 2020-10-25 18:04 | PC.NURSE ---
SHIFT SUMMARY PATIENT HAS DONE WELL SINCE ARRIVING TO THE FLOOR FROM THE OR. PAIN WELL CONTROLLED. PATIENT'S BP HAS BEEN SOFT, BUT IS CONTINUING TO IMPROVE. SURGICAL DRESSING IS C/D/I. ABDOMINAL BINDER OFF AT THIS TIME. PATIENT CURRENTLY SITTING ON SIDE OF THE BED EATING SUPPER. NO COMPLAINTS AT THIS TIME.
[2020-10-25] MEDS: amitriptyline 25 mg Tablet 50 MG PO (21:53)
[2020-10-26] VITALS: BP 110/73; PULSE 92; RESP 16; TEMP 37.2; O2SAT 97
[2020-10-26 04:00] VITALS: BP 113/68; PULSE 100; RESP 17; TEMP 37.9; O2SAT 99
[2020-10-26] MEDS: HYDROcodone-acetaminophen 5-325 mg Tablet PO ×2 (04:51→09:16)
[2020-10-26] MEDS: enoxaparin 40 mg/0.4 mL Syringe SUBCUT (06:26)
[2020-10-26 07:46] VITALS: BP 112/63; PULSE 120; RESP 14; TEMP 37.8; O2SAT 94
--- NOTE | 2020-10-26 07:47 | PC.NURSE ---
Found nurse and informed her of high temp and pulse rate
--- NOTE | 2020-10-26 08:55 | P.DS_ITS ---
Discharge Providers Date of Admission: 10/25/20 10:41 Date of Discharge: October 26, 2020 Attending Provider at Admission: Kvng Mitchell DO Attending Provider at Discharge: Victor Hugo Izquierdo MD Primary Care Provider: Viviana Pringle DO Diagnoses at Discharge Discharge Diagnosis (1) Chronic back pain: Status: Acute (2) Diabetes mellitus, without long-term current use of insulin: Status: Chronic Qualifiers: Diabetes mellitus type: type 2 Diabetes mellitus complication status: without complication Qualified Code(s): E11.9 - Type 2 diabetes mellitus without complications (3) Nicotine dependence, cigarettes, with unspecified nicotine-induced disorders: Status: Chronic (4) COPD (chronic obstructive pulmonary disease) with acute bronchitis: Status: Acute (5) Dyslipidemia: Status: Chronic (6) Hypertension: Status: Chronic Qualifiers: Hypertension type: essential hypertension Qualified Code(s): I10 - Essential (primary) hypertension Reason for Visit Reason for Visit: plif Hospital Course Hospital Course Patient is admitted on 10/25/2020. She had a L5-S1 posterior lumbar interbody fusion done. Her course was uncomplicated she was discharged on 10/26/2020. Physical Exam Narrative: EXAM NARRATIVE: Wound is clean dry and intact. Patient is sitting up at the bedside. Urinary Catheter Management^: Garrett: Cath Placed During This Visit: yes, but has since been removed by the nurse Urinary Catheter Date of Insertion: 10/25/20 Urinary Catheter Time of Insertion: 07:25 Date Urinary Catheter Removed: 10/25/20 Time Urinary Catheter Discontinued: 10:28 Discharge Data Data Completed and Pending: Completed Studies During Hospitalization Category Date Time Status XR lumbar spine 2 -3V* 90423 Routine Exams 10/25/20 Completed Pending at discharge Category Date Time Status C-arm Fluoroscopy 69542 Routine Exams 10/25/20 06:09 Taken Basic Metabolic P quin Routine Lab 10/25/20 06:09 Uncollected Complete Blood Co unt w/Auto Routine Lab 10/25/20 06:09 Uncollected Comprehensive Met abolic Panel Routi ne Lab 10/25/20 06:09 Uncollected Labs from last 24 hours 10/25/20 17:00 POC Glucose 210 H Vitals: Last Vital Signs Temp 100.1 F H 10/26/20 07:46 Pulse 120 H 10/26/20 07:46 Resp 14 10/26/20 07:46 BP 112/63 10/26/20 07:46 Pulse Ox 94 10/26/20 07:46 Discharge Plan Discharge Patient Disposition: Home Condition: Stable Prescriptions: New hydrocodone-acetaminophen 5-325 mg tablet 1 - 2 tab PO .Q4-6H Qty: 40 RF: 0 Continued naproxen 500 mg tablet 500 mg PO BID PRN (Reason: pain) Qty: 60 RF: 0 lisinopril 20 mg tablet 20 mg PO DAILY Qty: 90 RF: 0 Invokana 100 mg tablet 100 mg PO QAM Qty: 30 RF: 2 tizanidine 4 mg tablet 4 mg PO TID PRN (Reason: muscle spasticity) Qty: 60 RF: 0 simvastatin 20 mg tablet 20 mg PO DAILY Qty: 45 RF: 0 metformin 500 mg tablet extended release 24 hr See Rx Instructions .ROUTE .COMPLEX Qty: 60 RF: 5 albuterol sulfate [Ventolin HFA] 90 mcg/actuation HFA aerosol inhaler 1 inh inhalation Q6H PRN (Reason: shortness of breath or wheezing) Qty: 6.7 RF: 0 amitriptyline 50 mg tablet 50 mg PO DAILY@22 Qty: 90 RF: 0 Discharge Orders: Discharge Order (Routine); Ordered 10/26/20 Ordered By: Kvng Mitchell Discharge Diet: Advance as tolerated Discharge Activity: Limit activity as instructed Patient Instructions: Opioid Safety Activity Restrictions/Additional Instructions: Thank you for [facility] for your care! The following is a list of instructions, from your provider, to follow upon your discharge to ensure you have the optimal recovery from your recent injury orsurgery. Follow-up care is a haile part of your treatment and safety. Be sure to make and go to all appointments, and call your doctor if you are having problems. If you do not already have a follow-up appointment made, call Dr. Mitchell office in the next 1-3 days to make follow up appointment for 1 weeks at [phone]. It is also a good idea to know your test results and keep a list of the medicines you take. Medications will be prescribed for you at your provider's discretion. These medications are to be used as instructed; if they are taken more often that prescribed they will not be refilled early and in most cases will not be refilled at all. > When a refill is needed,you should contact damon abrams 2-3 business days before your prescription runs out. Medications will NOT be refilled by donor recruiter providers after hours! > Many pain medications contain Tylenol (Acetaminophen). Do not consume more than 4,000 mg of Tylenol per day in total with any combination ofmedications. > Pain medications can cause constipation. Please use an over the counter stool softener as directed, while taking pain medications. Consulty our local pharmacist with questions or recommendations on stool softeners. If constipation persists, contact our office or your primary care provider. > While under our care,you are not to receive pain medications or other controlled substances from any other provider unless our office is notified and approves. Any attempts to do so will result in refusal to prescribe any further pain medications and possible dismissal from our practice. ? Your wound and/or dressing should remain clean and dry for 7 days after surgery. On postoperative day 7 make appointment for dressing change ? Walking is essential for the healing process after surgery. We would like you to slowly advance your walking. This should be done on relatively flat clear ground (inside or out) or can be done on a treadmill. Remember this goal does not have to happen all at once, slowly increase your distance and duration. This can be broken into more more than one walk per day as tolerated. Patients who walk as directed after surgery rarely require Physical Therapy. In the unlikely event this issue arises your provider will direct hospital staff to make the appropriate arrangements. ? No lifting over 5 pounds {a gallon of milk) or bending/twisting until further notice. Each of these activities places an unnecessary amount of stress onto the body and can impede the delicate healing process. > Instead of bending at the waist, keep your back straight and bend at the knees. > Instead of twisting your torso, keep your back straight and turn your entire body with your feet. ? You may sleep in any position which makes you comfortable. Many patients find comfort sleeping in a reclining chair. It is not abnormal to have difficulty sleeping for the first several weeks following your surgery. We recommend trying Benadry! or Tylenol PM as directed to help with your sleeping difficulties. Both medications are over the counter and available withoutpre scription. ? NO SMOKING!!! Smoking dramatically increases the probability of developing postoperative wound infections. ? Common complaints after lumbar and/or thoracic spine surgery include, but are not limited to: numbness and/or tingling in the legs, pain around the incision and surrounding tissues, muscle spasms, or stiffness of the middle to low back. Contact our office if these symptoms persist or if an acute change occurs. ? No driving for the first 3-5days, and not while taking narcotics until seen at your follow-up appointment and cleared. There are no restrictions for riding on short trips, however if you take a longer trip, arrangements should be made to make regular stops to get out of the vehicle and stretch . ? Swelling is an unfortunate event that will take place with any surgery and is the primary source of your postoperative discomfort. While walking and regular approved activities helps control inflammation, there are additional steps you can take to minimizeswelling. > Place ice over the surgical site and surrounding tissue for twenty minutes, followed by applying a low/medium heat (heating pad) for an additional twenty minutes every 1-2 hours as needed for painrelief. > You may use of over the counter anti-inflammatory medications (Ibuprofen, Motrin, Aleve, Advil, etc) as directed on the package label. These types of medicines wm significantly reduce the amount of discomfort you experience after surgery from swelling. It should be noted that if you have and allergy to any of these medications, or a history of ulcers or kidney disease you should consult you primary care provider prior to starting these medications. Discharge Attestations Time Spent in Discharge Care*: less than 30 min Specific Discharge Activities: educating patient Quality Metrics Clinical Quality Measures During this hospital stay, did patient experience: None Coding Level of Care Code Acute [facility] note Diagnoses Chronic back pain M54.9; G89.29 Diabetes mellitus, without long-term current use of insulin E11.9 Diabetes mellitus type: type 2 Diabetes mellitus complication status: without complication Nicotine dependence, cigarettes, with unspecified nicotine-induced disorders F17.219 COPD (chronic obstructive pulmonary disease) with acute bronchitis J44.0; J20.9 Dyslipidemia E78.5 Hypertension I10 Hypertension type: essential hypertension
[2020-10-26] MEDS: atorvastatin 40 mg Tablet 20 MG PO (09:12)
[2020-10-26] MEDS: lisinopril 20 mg Tablet PO (09:12)
[2020-10-26] MEDS: docusate sodium 100 mg Capsule PO (09:12)
[2020-10-26] MEDS: metformin XR 500 MG Tablet PO (09:17)
[2020-10-26 09:24] VITALS: PULSE 115; RESP 17; O2SAT 96
--- NOTE | 2020-10-26 09:47 | PC.CHAP ---
Pastoral Care Encounter/Spiritual Assessment Type of Contact [] Declined space operations visit [] Patient/Family/Request visit [] Outpatient visit [] Follow-up visit [] Physician referral [] Code/Alert [x] Routine visit [] Staff referral [] Actively dying [x] Patient sleeping [] Family support [] [] Out of room [] Palliative care [] [] Receiving care in room [] Pre-surgical visit [] Trauma [] Long length of stay [] ICU visit [] Other: Relational/Emotional Strength [] Patient feels connected with others/family/visitors/staff [] Distress [] Loneliness/isolation [] Abandonment Spirituality of Patient [] Person of Deja [] Attends Amish of their Deja [] Believes in Prayer [] Reads Bible or Islam materials [] There are Spiritual issues to be addressed Acid Recovery Operator Interventions [] Prayer [] Active listening [] Non-anxious presence [] Spiritual/emotional support [] Crisis/trauma care [] Spiritual counseling [] Bereavement support [] Provided bereavement packet [] Provided Bible/devotional materials [] Provided toy/stuffed animal, coloring book to patient or family member [] Provided Communion [] Anointing/[place] [] Salvation [] Completed spiritual assessment [] Other: Impact on Illness or Injury [] Angry [] Fearful [] Anxious [] Often cries [] Exhaustion [] Unable to work [] Unable to attend temple [] Unable to walk/stand [] Unable to read [] Unable to drive [] Unable to eat/drink [] Unable to sleep [] Unable to be with family [] Patient intubated [] Other: Summary Time spent with patient
--- NOTE | 2020-10-26 10:09 | PM.PN ---
Subjective Subjective: Interval history: Ciera reports she is doing okay this morning. She is able to get up. She still has back pain as expected following surgery. Medications: Reviewed: Yes Vitals/I&O/Wt Last Vital Signs Temp 100.1 F H 10/26/20 07:46 Pulse 115 H 10/26/20 09:24 Resp 17 10/26/20 09:24 BP 112/63 10/26/20 07:46 Pulse Ox 96 10/26/20 09:24 10/25/20 10/26/20 10/26/20 22:59 06:59 14:59 Intake Total 980 / 2400 290 / 290 Output Total 1200 / 1650 400 / 2050 575 / 575 Balance -220 / 750 -400 / 350 -285 / -285 Physical Exam Narrative: EXAM NARRATIVE: General exam no distress Neck is supple no lymphadenopathy or thyromegaly Cardiovascular regular rate and rhythm without murmur Lungs clear no wheezing or crackles Abdomen is soft, positive bowel sounds. Binder noted. No obvious organomegaly Extremities no cyanosis clubbing or edema, cap refill brisk. Able to dorsiflex bilaterally without difficulty . Urinary Catheter Management^: Garrett: Cath Placed During This Visit: yes, but has since been removed by the nurse Urinary Catheter Date of Insertion: 10/25/20 Urinary Catheter Time of Insertion: 07:25 Date Urinary Catheter Removed: 10/25/20 Time Urinary Catheter Discontinued: 10:28 A&P Assessment and plan (1) Chronic back pain: Postoperative day #1 status post L5/S1 fusion. No complications with surgery. Dr. Mitchell is primary. Status: Acute (2) Diabetes mellitus, without long-term current use of insulin: Sliding scale insulin Consistent carb diet May continue Glucophage as no imaging with radiological dye is planned Status: Chronic Qualifiers: Diabetes mellitus type: type 2 Diabetes mellitus complication status: without complication Qualified Code(s): E11.9 - Type 2 diabetes mellitus without complications (3) Nicotine dependence, cigarettes, with unspecified nicotine-induced disorders: Counselled Status: Chronic (4) COPD (chronic obstructive pulmonary disease) with acute bronchitis: DuoNeb as needed Status: Acute (5) Dyslipidemia: Continue statin Status: Chronic (6) Hypertension: Continue EARNEST inhibitor Monitor Status: Chronic Qualifiers: Hypertension type: essential hypertension Qualified Code(s): I10 - Essential (primary) hypertension Additional A&P Information Full code Lovenox for DVT prophylaxis Ok for discharge from medical standpoint. Attestations Medical Necessity Statement*: As per primary Coding Level of Care Code Acute Gas Engine Repairer for g Fwd Diagnoses Chronic back pain M54.9; G89.29 Diabetes mellitus, without long-term current use of insulin E11.9 Diabetes mellitus type: type 2 Diabetes mellitus complication status: without complication Nicotine dependence, cigarettes, with unspecified nicotine-induced disorders F17.219 COPD (chronic obstructive pulmonary disease) with acute bronchitis J44.0; J20.9 Dyslipidemia E78.5 Hypertension I10 Hypertension type: essential hypertension
[2020-10-26 12:13] VITALS: BP 112/63; PULSE 115; RESP 17; TEMP 37.8; O2SAT 96
--- NOTE | 2020-10-29 08:57 | PC.RESP ---
SMOKING CESSATION AND PULMONARY REHAB INFORMATION SENT TO PATIENT.
== END 2020-10-26 12:15 | disposition home or self-care (01) ==
LOC: MEDSURG 10:42
PROVIDERS: Admitting Provider Orthopaedic Surgery; PCP Family Medicine; Visit Provider Internal Medicine
PROC: (CPT 22612; principal; 2020-10-25 07:00)
DX: M43.17 Spondylolisthesis, lumbosacral region (principal); M54.9 Dorsalgia, unspecified; G89.29 Other chronic pain; E11.9 Type 2 diabetes mellitus without complications; F17.219 Nicotine dependence, cigarettes, with unspecified nicotine-induced disorders; J44.0 Chronic obstructive pulmonary disease with (acute) lower respiratory infection; J20.9 Acute bronchitis, unspecified; E78.5 Hyperlipidemia, unspecified; I10 Essential (primary) hypertension; Z79.84 Long term (current) use of oral hypoglycemic drugs; Z82.49 Family history of ischemic heart disease and other diseases of the circulatory system; Z83.3 Family history of diabetes mellitus
CPT/HCPCS: 20930; 20939; 22633; 22634; 22840; 22853; 61783; 63047; 36415; 36416; 72100; 76000; 82962; 96365; 96372; 97116; 97161; C1713; G0378; J0690; J1100; J1170; J1200; J1644; J1650; J1885; J2370; J2405; J2704; J3010; J3370; J3490; J7030

== ENCOUNTER → 2020-12-06 09:34 | Outpatient (BNVA) | payer MEDICARE, MEDICAID, SELFPAY | PROVIDERS: PCP Family Medicine; Visit Provider Family Medicine | DX: E11.9 Type 2 diabetes mellitus without complications (principal); I10 Essential (primary) hypertension; E78.5 Hyperlipidemia, unspecified; F17.219 Nicotine dependence, cigarettes, with unspecified nicotine-induced disorders | CPT/HCPCS: 80053; 83036 ==

== ENCOUNTER → 2020-12-17 09:25 | Outpatient (BNVA) | payer MEDICARE, MEDICAID, SELFPAY | PROVIDERS: PCP Family Medicine; Visit Provider Orthopaedic Surgery | DX: M47.27 Other spondylosis with radiculopathy, lumbosacral region (principal) | CPT/HCPCS: 72100 ==

== ENCOUNTER → 2021-02-01 08:52 | Outpatient (BNVA) | payer MEDICARE, MEDICAID, SELFPAY | PROVIDERS: PCP Family Medicine; Visit Provider Orthopaedic Surgery | DX: Z47.89 Encounter for other orthopedic aftercare (principal); M47.27 Other spondylosis with radiculopathy, lumbosacral region | CPT/HCPCS: 72100 ==

== ENCOUNTER 2021-02-03 06:00 | Outpatient (RCR) | payer MEDICARE, MEDICAID, SELFPAY | END 2021-02-27 23:59 | disposition home or self-care (01) | LOC: SPT 06:00 | PROVIDERS: PCP Family Medicine; Referring Provider Orthopaedic Surgery; Visit Provider Orthopaedic Surgery | DX: Z47.89 Encounter for other orthopedic aftercare (principal); Z98.1 Arthrodesis status | CPT/HCPCS: 97110; 97162 ==

== ENCOUNTER 2021-03-31 16:16 | Emergency (ER) | payer MEDICARE, MEDICAID, SELFPAY ==
[2021-03-31 16:59] VITALS: BP 128/76; PULSE 105; RESP 18; TEMP 36.9; O2SAT 98; BMI 30.9
--- NOTE | 2021-03-31 19:01 | XRR_ITS ---
PROCEDURE INFORMATION: Exam: XR Chest Exam date and time: 03/31/2021 7:01 PM Age: 55 years old Clinical indication: Other: Dizzy, fatigue; Additional info: Cp TECHNIQUE: Imaging protocol: XR of the chest. Views: 1 view. COMPARISON: CR XR chest 2V* [id number] 05/01/2020 2:08 PM FINDINGS: Lungs: Unremarkable. No consolidation. Pleural spaces: Unremarkable. No pleural effusion. No pneumothorax. Heart/Mediastinum: Unremarkable. No cardiomegaly. Bones/joints: Unremarkable. XR/XR chest 1V portable [id number] IMPRESSION: No acute findings. Radiation Dose CTDIVOL = (mGy): DLP = (mGy-cm)
--- NOTE | 2021-03-31 21:12 | W.ED.DIZZY ---
HPI - Dizziness General: Chief Complaint: Dizziness Stated Complaint: LOW BP/FATIGUE/DIZZY SPELLS Time Seen by Provider: 03/31/21 20:53 History of Present Illness: HPI Narrative: Patient is a 55-year-old female comes to the ED with headache and dizzy spells. Patient says for the last 3 days she keeps having episodes of some dizziness that occur 3-4 times a day and lasts just for a few minutes. Usually occur while she is up moving around. She describes the dizziness more as a lightheaded feeling and a little off balance. Denies any room spinning. She says today when she was having one of the episodes she took her blood pressure and it was around mid 90s over 60s. The rest of her blood pressures have been normal. She is currently on lisinopril and takes that one time a day in the evening. She has not had any change in dosing recently to cause symptoms. Here in the ED patient does not currently have any symptoms besides a headache. Denies any dizziness currently. Denies any neuro symptoms such as numbness, tingling or weakness to extremities or one side of face. Denies any fever, chills, nausea/vomiting, bladder symptoms, bowel symptoms, chest pain or shortness of breath. Associated symptoms: Reports headache(s); Denies chest pain, chills, nausea, nasal congestion, palpitations or vomiting Associated neuro symptoms: Deny numbness in extremities Review of Systems Const: Denies: fever(s), chills or fatigue Eyes: Denies: change in vision or eye discomfort ENMT: Denies: throat pain, odynophagia, nasal discharge or nasal congestion Card: Denies: chest pain, palpitations, edema, swelling of feet/ankles, dyspnea on exertion or orthopnea Resp: Denies: dyspnea, productive cough or non-productive cough GI: Denies: abdominal pain, nausea, vomiting, diarrhea, constipation or hematochezia : Denies: flank pain, dysuria or hematuria Musc: Denies: neck pain, back pain or extremity swelling Skin/Breast: Denies: rash or new lesions Neuro: Reports: headache(s) and dizziness; Denies: numbness in extremities or weakness in extremities PFS ED PFSH: Medical History Chronic back pain COPD (chronic obstructive pulmonary disease) COPD (chronic obstructive pulmonary disease) with acute bronchitis Diabetes mellitus, without long-term current use of insulin Dyslipidemia History of colon polyps Hypertension Insomnia Lumbar spondylolysis Lumbosacral spondylosis with radiculopathy Spondylolisthesis, lumbosacral region Surgical History H/O section x3 Family History Other CAD (coronary artery disease) Diabetes Hypertension Stroke Social History Alcohol intake: never Marital status: Single Current occupational status: disabled History of recent travel: No Deja/Mosque: Congregational Female Reproductive History: Date of last menstrual period: 10/18/16 Physical Exam Const: COMMON NORMALS: no acute distress, patient oriented x3, healthy appearing and alert GENERAL APPEARANCE: cooperative and comfortable HENMT: COMMON NORMALS: normocephalic HEAD & SCALP: normocephalic MOUTH: Normal oral and palatal mucosa present THROAT: posterior oropharynx normal and uvula midline Neck/C-Spine: COMMON NORMALS: supple GENERAL: Yes normal visual inspection Resp: COMMON NORMALS: normal respiratory effort, No retractions, No use of accessory muscles and clear to auscultation bilaterally AUSCULTATION: clear to auscultation bilaterally Cardio: COMMON NORMALS: regular rate, regular rhythm, S1 normal heart sound present, S2 normal heart sound present, No gallops present (Cardio), No clicks present (Cardio), No murmurs present (Cardio) and Peripheral pulses 2+ throughout RATE: regular rate RHYTHM: regular rhythm HEART SOUNDS: S1 normal heart sound present and S2 normal heart sound present PERIPHERAL PULSES: Peripheral pulses 2+ throughout GI: COMMON NORMALS: Normal to inspection, nondistended, normoactive bowel sounds present, Soft to palpation, non-tender and no masses PALPATION: Yes Soft to palpation : COMMON NORMALS: Yes no CVA tenderness BLADDER/KIDNEY EXAM: Yes no CVA tenderness Back/Pelvis: COMMON NORMALS: no CVA tenderness Extremity: COMMON NORMALS: normal to inspection Neuro: COMMON NORMALS: patient oriented x3, CN's II-XII intact bilaterally, moves all extremities, no focal motor deficits and no sensory deficits noted SENSORIUM/ORIENTATION: Yes alert COORDINATION/BALANCE: [id number] test normal SPEECH: speech normal MOTOR EXAM: 5/5 motor strength present throughout COORDINATION: [id number] test normal Skin: GENERAL SKIN EXAM: dry skin Course Vital Signs: Vital signs: Vital Signs Temperature 98.4 F 03/31/21 16:59 Pulse Rate 87 03/31/21 23:20 Respiratory Rate 15 03/31/21 23:20 Blood Pressure 118/72 03/31/21 23:20 Pulse Oximetry 97 03/31/21 23:20 MDM - Dizziness MDM Narrative: Medical decision making narrative: Patient is a 55-year-old female comes to the ED with episodes of dizziness and headache. They have been occurring multiple times a day for the past 3 to 4 days. Denies any fevers, chills, chest pain, shortness of breath, nausea/vomiting. Here in the ED she is asymptomatic and not experiencing any dizziness. Vital stable. Exam benign. Neuro exam showed no deficits. CBC and CMP were unremarkable. Chest x-ray showed no acute findings. CT of head showed no acute findings. EKG showed normal sinus rhythm with no acute signs of heart issues. Baseline troponin normal. Patient diagnosed with episode of dizziness and a headache and she was given a dose of Toradol while here in the ED. She was discharged home and told to follow-up with her PCP in 5 to 7 days reevaluation. Return to ED precautions given. Patient understood agree with plan. Lab Data: Attestation: I reviewed the patient's lab results. Labs: Lab Results 03/31/21 03/31/21 03/31/21 21:00 21:00 21:00 WBC 10.6 10^3/uL H 10 ^3/uL (4.0-10.0) RBC 5.62 10^6/uL H 10 ^6/uL (4.1-5.3) Hgb 17.6 g/dL H g/dL (11.5-15.3) Hct 48.1 % H % (37.0-47.0) MCV 85.6 fl fl (81-99) MCH 31.3 pg pg (28.0-34.0) MCHC 36.6 g/dL H g/dL (30.0-36.0) RDW 12.9 % % (12.1-15.1) Plt Count 199 10^3/cmm 10^3 /cmm (130-400) MPV 11.6 fL H fL (7.4-10.4) Neut % (Auto) 35.4 % % Lymph % (Auto) 54.1 % % Coffee % (Auto) 8.7 % % Eos % (Auto) 0.9 % % Baso % (Auto) 0.5 % % Neut # (Auto) 3.76 10^3/uL 10^3 /uL (1.8-7.7) Lymph # (Auto) 5.7 10^3/uL H 10^ 3/uL (0.8-4.8) Coffee # (Auto) 0.9 10^3/uL 10^3/ uL (0.2-0.9) Eos # (Auto) 0.1 10^3/uL 10^3/ uL (0.0-0.8) Baso # (Auto) 0.1 10^3/uL 10^3/ uL (0.0-0.1) Nucleated RBC % (a uto) 0 % % Nucleated RBCs # 0.0 /100WBC /100W BC Sodium Cancelled Potassium Cancelled Chloride Cancelled Carbon Dioxide Cancelled Anion Gap Cancelled BUN Cancelled Creatinine Cancelled GFR Calculation Cancelled Glucose Cancelled Calculated Osmolal ity Cancelled Calcium Cancelled Total Bilirubin Cancelled AST Cancelled ALT Cancelled Alkaline Phosphata se Cancelled Troponin T Gen 5 n g/L Cancelled Total Protein Cancelled Albumin Cancelled Globulin Cancelled 03/31/21 03/31/21 22:15 22:15 WBC RBC Hgb Hct MCV MCH MCHC RDW Plt Count MPV Neut % (Auto) Lymph % (Auto) Coffee % (Auto) Eos % (Auto) Baso % (Auto) Neut # (Auto) Lymph # (Auto) Coffee # (Auto) Eos # (Auto) Baso # (Auto) Nucleated RBC % (a uto) Nucleated RBCs # Sodium 135 mmol/L L mmol /L (136-145) Potassium 4.1 mmol/L mmol/L (3.5-5.1) Chloride 98 mmol/L mmol/L (98-107) Carbon Dioxide 22 mmol/L mmol/L (22-29) Anion Gap 19.1 H (5-19) BUN 15 mg/dL mg/dL (6-20) Creatinine 0.7 mg/dL mg/dL (0.5-0.9) GFR Calculation 87.5 mL/min L mL/ min (90-130) Glucose 120 mg/dL H mg/dL (65-115) Calculated Osmolal ity 282 mOsm/kg L mOs m/kg (285-295) Calcium 8.3 mg/dL L mg/dL (8.5-10.5) Total Bilirubin 0.3 mg/dL mg/dL (0.15-1.2) AST 14 U/L U/L (0-32) ALT 14 U/L U/L (0-33) Alkaline Phosphata se 87 IU/L IU/L (35-105) Troponin T Gen 5 n g/L 8 ng/L ng/L (0-10) Total Protein 6.4 g/dL L g/dL (6.6-8.7) Albumin 4.2 g/dL g/dL (3.5-5.2) Globulin 2.2 g/dL g/dL (1.3-4.6) Imaging Data^: CXR: Attestation: I personally reviewed and interpreted this imaging study as follows: Radiologist's impression: [address] [address]LDcg ReportSigned Patient: Erlinda Villaseñor #: [id number]: 1965Acct#:[id number]/Sex: 55 / FADM Date: 03/31/21Loc: ERRoom/Bed:Attending Dr: Ordering Provider/Ordering MD: Lary Randle MD Date of Service: 03/31/21 Procedure(s): XR chest 1V portable [id number] Accession Number(s): [id number] Report Number: [id number] PROCEDURE INFORMATION: Exam: XR Chest Exam date and time: 03/31/2021 7:01 PM Age: 55 years old Clinical indication: Other: Dizzy, fatigue; Additional info: Cp TECHNIQUE: Imaging protocol: XR of the chest. Views: 1 view. COMPARISON: CR XR chest 2V* [id number] 05/01/2020 2:08 PM FINDINGS: Lungs: Unremarkable. No consolidation. Pleural spaces: Unremarkable. No pleural effusion. No pneumothorax. Heart/Mediastinum: Unremarkable. No cardiomegaly. Bones/joints: Unremarkable. XR/XR chest 1V portable [id number] IMPRESSION: No acute findings. Radiation Dose CTDIVOL = (mGy): DLP = (mGy-cm) Dictated By:David Vickers MDSigned By:David Vickers MDSigned Date/Time:03/31/212003DD/ 00 CT Head: Attestation: I personally reviewed and interpreted this imaging study as follows: Radiologist's impression: [employer] [address] [address] Scan Report Signed Patient: Ciera Villaseñor Unit #: [id number] : 1965 Age/Sex: 55 / F ADM Date: 03/31/21 Loc: ER Room/Bed: Attending Dr: Ordering Provider/Ordering MD: Trent Walden Date of Service: 03/31/21 Procedure(s): CT head wo con* [id number] Accession Number(s): [id number] Report Number: [id number] PROCEDURE INFORMATION: Exam: CT Head Without Contrast Exam date and time: 03/31/2021 9:21 PM Age: 55 years old Clinical indication: Pain; Headache; Patient HX: CARRILLO with dizziness. Hypotensive. ; Additional info: Dizziness and headache TECHNIQUE: Imaging protocol: Computed tomography of the head without contrast. Radiation optimization: All CT scans at this facility use at least one of these dose optimization techniques: automated exposure control; mA and/or kV adjustment per patient size (includes targeted exams where dose is matched to clinical indication); or iterative reconstruction. COMPARISON: No relevant prior studies available. RADIATION DOSE METRICS: Total DLP (mGy-cm): 896.88 FINDINGS: Brain: Normal. No hemorrhage. Unremarkable white matter. No mass effect. Cerebral ventricles: No ventriculomegaly. Paranasal sinuses: Visualized sinuses are unremarkable. No fluid levels. Mastoid air cells: Visualized mastoid air cells are well aerated. Bones/joints: Unremarkable. No acute fracture. Soft tissues: Unremarkable. CT/CT head wo con* [id number] IMPRESSION: No acute intracranial abnormality. Radiation Dose CTDIVOL = (mGy): DLP = 896.88 (mGy-cm) Dictated By: David Vickers MD Signed By: David Vickers MD Signed Date/Time: 03/31/212229 DD/ 20 EKG Data^: EKG 1: Attestation: I personally reviewed and interpreted this EKG as follows: EKG interpretation date: 03/31/21 Interpretation: Normal sinus rhythm, 87 bpm, no ST segment elevation or depression seen. Discharge Plan Discharge Patient Disposition: Home Clinical Impression: Episode of dizziness Headache Qualifiers: Headache type: unspecified Headache chronicity pattern: acute headache Intractability: not intractable Qualified Code(s): R51.9 - Headache, unspecified Condition: Stable Prescriptions: No Action metformin 500 mg tablet extended release 24 hr See Rx Instructions .ROUTE .COMPLEX Qty: 60 RF: 5 lisinopril 20 mg tablet 20 mg PO DAILY Qty: 90 RF: 1 tizanidine 4 mg tablet 4 mg PO TID PRN (Reason: muscle spasticity) Qty: 180 RF: 0 Invokana 100 mg tablet 100 mg PO QAM Qty: 30 RF: 5 amitriptyline 50 mg tablet See Rx Instructions .ROUTE .COMPLEX Qty: 90 RF: 0 simvastatin 20 mg tablet 20 mg PO DAILY Qty: 90 RF: 1 albuterol sulfate [Ventolin HFA] 90 mcg/actuation HFA aerosol inhaler 1 inh inhalation Q6H PRN (Reason: shortness of breath or wheezing) Qty: 6.7 RF: 0 Discharge Orders: Discharge ED (Routine); Ordered 03/31/21 Ordered By: Trent Walden Referrals: Viviana Pringle DO [Primary Care Provider] - Discharge Diet: Regular Discharge Activity: Increase activity as tolerated Patient Instructions: Lightheadedness (ED), Dizziness (ED) Activity Restrictions/Additional Instructions: Follow-up with medical provider as directed in 5 to 7 days reevaluation. Continue taking all previously prescribed home medications. Return to the ER or your medical provider if condition worsens. Please read and understand discharge instructions. Thank you for choosing [facility] for your healthcare needs today. Please realize this is an emergency room and that we are providing you with a medical screening exam and this may not be complete and all inclusive of all the testing and or work up that you may need to determine your ailment or severity of your illness. It is very important that you follow up as instructed or that you return to the Emergency Department should you have concerns or if your condition changes or worsens in any way. Coding Level of Care Code ED Application Helper for Maylin Haas Exam Comprehensive
--- NOTE | 2021-03-31 21:21 | ECG_ITS ---
[facility] Test Date: 2021-03-31 Pat Name: Ciera Villaseñor Department: Room: Gender: Female Post Splitter: : 1965 Requested By: Trent Walden Order Number: [id number] Solis MD: Alba Rashid M.D. Measurements Intervals [place] Rate: 87 P: 60 CO: 177 QRS: -13 QRSD: 94 T: 40 QT: 381 QTc: 461 Interpretive Statements SINUS RHYTHM Compared to ECG 05/01/2020 12:29:14 Sinus tachycardia no longer present Electronically Signed On 04-01-2021 6:34:02 GROUP HOME COUNSELOR by Alba Rashid M.D. [id number]
--- NOTE | 2021-03-31 21:21 | CTR_ITS ---
PROCEDURE INFORMATION: Exam: CT Head Without Contrast Exam date and time: 03/31/2021 9:21 PM Age: 55 years old Clinical indication: Pain; Headache; Patient HX: CARRILLO with dizziness. Hypotensive. ; Additional info: Dizziness and headache TECHNIQUE: Imaging protocol: Computed tomography of the head without contrast. Radiation optimization: All CT scans at this facility use at least one of these dose optimization techniques: automated exposure control; mA and/or kV adjustment per patient size (includes targeted exams where dose is matched to clinical indication); or iterative reconstruction. COMPARISON: No relevant prior studies available. RADIATION DOSE METRICS: Total DLP (mGy-cm): 896.88 FINDINGS: Brain: Normal. No hemorrhage. Unremarkable white matter. No mass effect. Cerebral ventricles: No ventriculomegaly. Paranasal sinuses: Visualized sinuses are unremarkable. No fluid levels. Mastoid air cells: Visualized mastoid air cells are well aerated. Bones/joints: Unremarkable. No acute fracture. Soft tissues: Unremarkable. CT/CT head wo con* [id number] IMPRESSION: No acute intracranial abnormality. Radiation Dose CTDIVOL = (mGy): DLP = 896.88 (mGy-cm)
[2021-03-31 21:28] LABS: Basophils # 0.1 10^3/uL (0.0-0.1); Basophils % 0.5 %; Eosinophils # 0.1 10^3/uL (0.0-0.8); Eosinophils % 0.9 %; Hematocrit 48.1 % (37.0-47.0); Hemoglobin 17.6 g/dL (11.5-15.3); Lymphocytes # 5.7 10^3/uL (0.8-4.8); Lymphocytes % 54.1 %; Mean Corpuscular HGB Conc 36.6 g/dL (30.0-36.0); Mean Corpuscular Hemoglobin 31.3 pg (28.0-34.0); Mean Corpuscular Volume 85.6 fl (81-99); Mean Platelet Volume 11.6 fL (7.4-10.4); Monocytes # 0.9 10^3/uL (0.2-0.9); Monocytes % 8.7 %; Neutrophils # 3.76 10^3/uL (1.8-7.7); Neutrophils % 35.4 %; Nucleated Red Blood Cells % 0 %; Platelet Count 199 10^3/cmm (130-400); Red Blood Count 5.62 10^6/uL (4.1-5.3); Red Cell Distribution Width 12.9 % (12.1-15.1); White Blood Count 10.6 10^3/uL (4.0-10.0)
[2021-03-31 21:39] VITALS: BP 107/69; PULSE 91; RESP 21; O2SAT 96
[2021-03-31 21:47] VITALS: BP 100/70; BP 105/73; BP 107/69; PULSE 89; PULSE 94; PULSE 95
[2021-03-31 21:48] LABS: Slide Review Slide Review Perform
[2021-03-31 22:00] VITALS: BP 112/73
[2021-03-31 22:41] LABS: Troponin T (5th) Once 8 ng/L (0-10)
[2021-03-31 22:46] LABS: Alanine Aminotransferase 14 U/L (0-33); Albumin Level 4.2 g/dL (3.5-5.2); Alkaline Phosphatase 87 IU/L (35-105); Anion Gap 19.1 (5-19); Aspartate Amino Transferase 14 U/L (0-32); Blood Urea Nitrogen 15 mg/dL (6-20); Calcium 8.3 mg/dL (8.5-10.5); Carbon Dioxide 22 mmol/L (22-29); Chloride 98 mmol/L (98-107); Globulin 2.2 g/dL (1.3-4.6); Glomerular Filtration Rate 87.5 mL/min (90-130); Glucose 120 mg/dL (65-115); Osmolality Calculated 282 mOsm/kg (285-295); Potassium 4.1 mmol/L (3.5-5.1); Sodium 135 mmol/L (136-145); Total Bilirubin 0.3 mg/dL (0.15-1.2); Total Protein 6.4 g/dL (6.6-8.7)
[2021-03-31] MEDS: ketorolac 60 mg/2 mL INJ IM (23:19)
[2021-03-31 23:20] VITALS: BP 118/72; PULSE 87; RESP 15; O2SAT 97
== END 2021-03-31 23:15 | disposition home or self-care (01) ==
PROVIDERS: Emergency Medicine; Emergency Provider Physician Assistant; PCP Family Medicine
DX: R42 Dizziness and giddiness (principal); R51.9 Headache, unspecified; Z79.84 Long term (current) use of oral hypoglycemic drugs; J44.9 Chronic obstructive pulmonary disease, unspecified; E11.9 Type 2 diabetes mellitus without complications; E78.5 Hyperlipidemia, unspecified; I10 Essential (primary) hypertension
CPT/HCPCS: 36415; 70450; 71045; 80053; 84484; 85025; 93005; 96372; 99283; J1885

== ENCOUNTER → 2021-04-05 08:04 | Outpatient (BNVA) | payer MEDICARE, MEDICAID, SELFPAY | PROVIDERS: PCP Family Medicine; Visit Provider Orthopaedic Surgery | DX: Z47.89 Encounter for other orthopedic aftercare (principal); M47.27 Other spondylosis with radiculopathy, lumbosacral region; Z98.1 Arthrodesis status | CPT/HCPCS: 72100 ==

== ENCOUNTER → 2021-06-17 08:53 | Outpatient (BNVA) | payer MEDICARE, MEDICAID, SELFPAY | PROVIDERS: PCP Family Medicine; Visit Provider Family Medicine | DX: E11.9 Type 2 diabetes mellitus without complications (principal); E78.5 Hyperlipidemia, unspecified; I10 Essential (primary) hypertension | CPT/HCPCS: 80053; 80061; 82043; 83036; 85025 ==

== ENCOUNTER → 2021-07-11 12:21 | Outpatient (BNVA) | payer MEDICARE, MEDICAID, SELFPAY | PROVIDERS: PCP Family Medicine; Visit Provider Nurse Practitioner | DX: M25.512 Pain in left shoulder (principal) | CPT/HCPCS: 73030 ==

== ENCOUNTER 2021-07-27 06:00 | Outpatient (RCR) | payer MEDICARE, MEDICAID, SELFPAY | END 2021-07-28 23:59 | disposition home or self-care (01) | LOC: SPT 06:00 | PROVIDERS: PCP Family Medicine; Referring Provider Family Medicine; Visit Provider Family Medicine | DX: M25.512 Pain in left shoulder (principal) | CPT/HCPCS: 97032; 97110; 97161 ==

== ENCOUNTER 2021-07-29 06:00 | Outpatient (RCR) | payer MEDICARE, MEDICAID, SELFPAY | END 2021-08-27 23:59 | disposition home or self-care (01) | LOC: SPT 06:00 | PROVIDERS: PCP Family Medicine; Referring Provider Family Medicine; Visit Provider Family Medicine | DX: M25.512 Pain in left shoulder (principal) | CPT/HCPCS: 97032; 97110; 97530 ==

== ENCOUNTER 2021-08-28 06:00 | Outpatient (RCR) | payer MEDICARE, MEDICAID, SELFPAY | END 2021-09-27 23:59 | disposition home or self-care (01) | LOC: SPT 06:00 | PROVIDERS: PCP Family Medicine; Referring Provider Family Medicine; Visit Provider Family Medicine | DX: M25.512 Pain in left shoulder (principal) | CPT/HCPCS: 97032; 97110 ==

== ENCOUNTER → 2021-08-31 09:42 | Outpatient (BNVA) | payer MEDICARE, MEDICAID, SELFPAY | PROVIDERS: PCP Family Medicine; Visit Provider Family Medicine | DX: E11.9 Type 2 diabetes mellitus without complications (principal) | CPT/HCPCS: 80053; 83036 ==

== ENCOUNTER 2021-09-28 06:00 | Outpatient (RCR) | payer MEDICARE, MEDICAID, SELFPAY | END 2021-10-27 23:59 | disposition home or self-care (01) | LOC: SPT 06:00 | PROVIDERS: PCP Family Medicine; Referring Provider Family Medicine; Visit Provider Family Medicine | DX: M25.512 Pain in left shoulder (principal) | CPT/HCPCS: 97110 ==

== ENCOUNTER 2021-10-28 06:00 | Outpatient (RCR) | payer MEDICARE, MEDICAID, SELFPAY | END 2021-11-27 23:59 | disposition home or self-care (01) | LOC: SPT 06:00 | PROVIDERS: PCP Family Medicine; Referring Provider Family Medicine; Visit Provider Family Medicine | DX: M25.512 Pain in left shoulder (principal) | CPT/HCPCS: 97110 ==

== ENCOUNTER → 2021-11-07 13:20 | Outpatient (BNVA) | payer MEDICARE, MEDICAID, SELFPAY | PROVIDERS: PCP Family Medicine; Referring Provider Family Medicine; Visit Provider Specialist | DX: M25.512 Pain in left shoulder (principal); G89.29 Other chronic pain | CPT/HCPCS: 73030; 99204 ==

== ENCOUNTER → 2021-12-16 08:34 | Outpatient (BNVA) | payer MEDICARE, MEDICAID, SELFPAY | PROVIDERS: PCP Family Medicine; Visit Provider Family Medicine | DX: I10 Essential (primary) hypertension (principal); E78.5 Hyperlipidemia, unspecified; E11.9 Type 2 diabetes mellitus without complications; J44.0 Chronic obstructive pulmonary disease with (acute) lower respiratory infection; J20.9 Acute bronchitis, unspecified; F51.01 Primary insomnia; E11.40 Type 2 diabetes mellitus with diabetic neuropathy, unspecified; E11.42 Type 2 diabetes mellitus with diabetic polyneuropathy; F17.219 Nicotine dependence, cigarettes, with unspecified nicotine-induced disorders | CPT/HCPCS: 83036 ==

== ENCOUNTER 2021-12-28 07:07 | Outpatient (CLI) | payer MEDICARE, MEDICAID, SELFPAY ==
--- NOTE | 2021-12-28 07:15 | MR_ITS ---
WS: [id number] MRI LEFT SHOULDER NONCONTRAST TECHNIQUE: Sagittal T2, coronal T1, T2 and proton density imaging. Axial gradient PDE imaging. CLINICAL INFORMATION: left shoulder pain COMPARISON: None. FINDINGS: Moderate degenerative arthritis at the AC joint. Hypertrophic changes. Mild edema at the AC joint wit h tiny amount of subacromial fluid. Mild downsloping of the acromion with slight subacromial spurring . Mild impingement on the distal supraspinatus. Tiny bursal surface tear involving the distal suprasp inatus just deep to the subacromial spurring. Tendinopathy in the supraspinatus. Normal infraspinatus . Normal subscapularis. Normal teres minor. Normal biceps tendon in the bicipital groove. Normal intra-articular biceps tendon. Normal biceps lab ral anchor. Degenerative fraying of the glenoid labrum. Normal bone marrow signal in the humerus and glenoid. MR/MR shoulder LT wo con* [id number] IMPRESSION: 1. Moderate degenerative arthritis AC joint with edema and slight subacromial spurring. Slight impingement on the distal supraspinatus. 2. Tiny bursal surface tear in the supraspinatus deep to the subacromial spurr ing. Mild tendinopathy in supraspinatus. 3. Rotator cuff is otherwise normal. 4. Normal biceps tendon in the bicipital groove. 5. No other significant findings.
== END 2021-12-28 07:08 | disposition home or self-care (01) ==
PROVIDERS: PCP Family Medicine; Visit Provider Specialist
DX: M19.012 Primary osteoarthritis, left shoulder (principal); M75.102 Unspecified rotator cuff tear or rupture of left shoulder, not specified as traumatic
CPT/HCPCS: 73221

== ENCOUNTER → 2022-01-23 14:14 | Outpatient (BNVA) | payer MEDICARE, MEDICAID, SELFPAY | PROVIDERS: PCP Family Medicine; Visit Provider Specialist | DX: M75.42 Impingement syndrome of left shoulder (principal); M77.8 Other enthesopathies, not elsewhere classified; M19.012 Primary osteoarthritis, left shoulder | CPT/HCPCS: 20610; 99213; J1100; J2795; J3301 ==

== ENCOUNTER 2022-02-15 06:00 | Outpatient (RCR) | payer MEDICARE, MEDICAID, SELFPAY | END 2022-02-27 23:59 | disposition home or self-care (01) | LOC: SPT 06:00 | PROVIDERS: PCP Family Medicine; Visit Provider Specialist | DX: M19.012 Primary osteoarthritis, left shoulder (principal) | CPT/HCPCS: 97110; 97161 ==

== ENCOUNTER 2022-02-28 06:00 | Outpatient (RCR) | payer MEDICARE, MEDICAID, SELFPAY | END 2022-03-29 23:59 | disposition home or self-care (01) | LOC: SPT 06:00 | PROVIDERS: PCP Family Medicine; Visit Provider Specialist | DX: M13.812 Other specified arthritis, left shoulder (principal) | CPT/HCPCS: 97110 ==

== ENCOUNTER → 2022-03-06 13:02 | Outpatient (BNVA) | payer MEDICARE, MEDICAID, SELFPAY | PROVIDERS: PCP Family Medicine; Visit Provider Specialist | DX: M75.42 Impingement syndrome of left shoulder (principal); M77.8 Other enthesopathies, not elsewhere classified; M19.012 Primary osteoarthritis, left shoulder | CPT/HCPCS: 99213 ==

== ENCOUNTER 2022-03-30 06:00 | Outpatient (RCR) | payer MEDICARE, MEDICAID, SELFPAY | END 2022-04-29 23:59 | disposition home or self-care (01) | LOC: SPT 06:00 | PROVIDERS: PCP Family Medicine; Visit Provider Specialist | DX: M19.012 Primary osteoarthritis, left shoulder (principal); M25.512 Pain in left shoulder | CPT/HCPCS: 97110 ==

== ENCOUNTER 2022-04-30 06:00 | Outpatient (RCR) | payer MEDICARE, MEDICAID, SELFPAY | END 2022-05-10 23:59 | disposition home or self-care (01) | LOC: SPT 06:00 | PROVIDERS: PCP Family Medicine; Visit Provider Specialist | DX: M13.812 Other specified arthritis, left shoulder (principal) | CPT/HCPCS: 97110 ==

== ENCOUNTER → 2022-05-10 10:04 | Outpatient (BNVA) | payer MEDICARE, MEDICAID, SELFPAY | PROVIDERS: PCP Family Medicine; Visit Provider Specialist | DX: M19.012 Primary osteoarthritis, left shoulder (principal); M77.8 Other enthesopathies, not elsewhere classified; M75.42 Impingement syndrome of left shoulder | CPT/HCPCS: 99213 ==

== ENCOUNTER 2022-05-21 13:55 | Emergency (ER) | payer MEDICARE, MEDICAID, SELFPAY ==
[2022-05-21 13:59] VITALS: BP 154/82; PULSE 110; RESP 18; TEMP 36.8; O2SAT 98
--- NOTE | 2022-05-21 14:17 | XRR_ITS ---
PROCEDURE INFORMATION: Exam: XR Lumbosacral Spine Exam date and time: 05/21/2022 2:40 PM Age: 56 years old Clinical indication: Low back pain; Prior surgery; Additional info: HX of back surgery, recent falls and pain TECHNIQUE: Imaging protocol: Radiologic exam of the lumbosacral spine. Views: 2 or 3 views. COMPARISON: CR XR lumbar spine 2-3V* [id number] 04/05/2021 8:11 AM FINDINGS: Bones/joints: Stable radiopaque L5-S1 disc spacer. Stable grade 1 anterior spondylolisthesis of L5 on S1. Mild to moderate multilevel spine degenerative changes including degenerative disc disease, spondylosis and facet degenerative changes. Soft tissues: Unremarkable. Vasculature: Calcification of the abdominal aorta and/or iliac arteries consistent with atherosclerotic vessel disease. Other findings: Stable postoperative changes over the lumbar spine with metallic fixation and metallic artifact. XR/XR lumbar spine 2-3V* [id number] IMPRESSION: 1. Stable postoperative changes over the lumbar spine with metallic fixation and metallic artifact. 2. Stable radiopaque L5-S1 disc spacer. 3. Stable grade 1 anterior spondylolisthesis of L5 on S1. 4. Mild to moderate multilevel spine degenerative changes including degenerative disc disease, spondylosis and facet degenerative changes.
--- NOTE | 2022-05-21 14:19 | ED_ITS ---
HPI - Back Pain/Injury General: Chief Complaint: Back Pain/Injury Stated Complaint: back pain Time Seen by Provider: 05/21/22 14:05 Source: patient Mode of arrival: ambulatory Limitations: no limitations History of Present Illness: 56-year-old female presents to the ER today for worsening low back pain times last 1 month. Patient reports back surgery in September 2020. Since then she reports she has had at least 3 falls. Patient reports for the last month she has pain in the right low back that radiates both up and down. Patient reports it radiates down the right leg to the mid calf. Patient reports some numbness and tingling/burning in the right lower leg also with this pain. She denies any loss of bowel or bladder control. Patient reports she has been taking Tylenol and ibuprofen at home with no improvement. She has not seen her PCP for this recently. She reports she has had no imaging since the falls. Review of Systems General: Reports: 10 or more systems reviewed and unremarkable except in HPI and below PFSH ED PFSH: Medical History Chronic back pain COPD (chronic obstructive pulmonary disease) COPD (chronic obstructive pulmonary disease) with acute bronchitis Diabetes mellitus, without long-term current use of insulin Dyslipidemia History of colon polyps Hypertension Insomnia Lumbar spondylolysis Lumbosacral spondylosis with radiculopathy Spondylolisthesis, lumbosacral region Surgical History H/O section x3 Family History Other CAD (coronary artery disease) Diabetes Hypertension Stroke Social History Smoking and tobacco status: current every day smoker cigarettes Packs smoked pe r day: 1 Alcohol intake: never Marital status: Single Current occupational status: disabled History of recent travel: No Deja/Zoroastrian: Hinduism Female Reproductive History: Date of last menstrual period: 10/18/16 Physical Exam Const: COMMON NORMALS: average body habitus, patient oriented x3, no limitations, healthy appearing, alert and well nourished Resp: COMMON NORMALS: normal respiratory effort EFFORT & INSPECTION: Yes able to speak in complete sentences Cardio: COMMON NORMALS: regular rate, regular rhythm and No murmurs present (Cardio) RATE: regular rate RHYTHM: regular rhythm Back/Pelvis: OTHER: Patient has tenderness of the right SI joint and deep palpation causes a radiating pain down the right leg. Patient uses a cane for ambulation. Patient has pain with a straight leg raise. No tenderness noted over the spinous processes of the L-spine, most of the tenderness is along the paraspinal muscles. Extremity: COMMON NORMALS: normal to inspection, full ROM and no pedal edema Neuro: COMMON NORMALS: patient oriented x3 SENSORIUM/ORIENTATION: Yes alert Psych: COMMON NORMALS: mental status grossly normal, Normal thought process present and cooperative THOUGHT PROCESS: Normal thought process present Skin: COMMON NORMALS: no rashes or lesions noted and no wounds GENERAL SKIN EXAM: no rashes or lesions noted Course ED course: Patient has a history of back surgery in September 2020 however has had several falls since. She has worsening pain over the last 1 month. She does have some radiating pain down the right leg but no neurological deficits noted. No loss of bowel or bladder control. No signs of cauda equina syndrome. Patient uses a cane for ambulation. We will go ahead and get an x-ray at this time to rule out any acute issues. Vital Signs: Vital signs: Vital Signs Temperature 98.2 F 05/21/22 13:59 Pulse Rate 110 H 05/21/22 13:59 Respiratory Rate 18 05/21/22 13:59 Blood Pressure 154/82 05/21/22 13:59 Pulse Oximetry 98 05/21/22 13:59 Oxygen Delivery Me thod 05/21/22 13:59 MDM - Back Pain/Injury Medical Decision Making X-ray shows stable postoperative changes. Based on symptoms, patient likely needs an MRI and follow-up. We will try a Medrol Dosepak, anti-inflammatory, and muscle relaxer to see if it takes the edge off the pain or helps improve the pain. If the pain has not improved or is not significantly better within 7 to 10 days I would recommend she follow-up with her PCP to discuss the further imaging. Patient currently has no neurological deficits. No loss of bowel or bladder control. For any new or worsening symptoms please return to the ER. Patient verbalized understanding and was in agreement with this treatment plan. Labs Radiology Impressions Lumbar Spine X-Ray 05/21/22 14:17 IMPRESSION: 1. Stable postoperative changes over the lumbar spine with metallic fixation and metallic artifact. 2. Stable radiopaque L5-S1 disc spacer. 3. Stable grade 1 anterior spondylolisthesis of L5 on S1. 4. Mild to moderate multilevel spine degenerative changes including degenerative disc disease, spondylosis and facet degenerative changes. Critical Care Time Critical Care Time: Critical Care Time: No Discharge Plan Discharge Patient Disposition: Home Clinical Impression: Acute exacerbation of chronic low back pain Condition: Stable Prescriptions: New ketorolac 10 mg tablet 10 mg PO Q8H PRN (Reason: pain) 3 Days Qty: 12 0RF methocarbamol 750 mg tablet 750 mg PO Q8H Qty: 21 0RF Medrol (Elbert) 4 mg tablets,dose pack See Rx Instructions .ROUTE .COMPLEX Qty: 21 0RF Rx Instructions: orally per package directions Held tizanidine 4 mg tablet See Rx Instructions .ROUTE .COMPLEX Qty: 180 0RF Hold Instructions: Resume on 06/19/22. hold while taking robaxin Dose Instruction: Take 1 tablet by mouth three times daily as needed for muscle spasm Rx Instructions: Take 1 tablet by mouth three times daily as needed for muscle spasm No Action lisinopril 20 mg tablet See Rx Instructions .ROUTE .COMPLEX Qty: 90 1RF Dose Instruction: Take 1 tablet by mouth once daily Rx Instructions: Take 1 tablet by mouth once daily Invokana 300 mg tablet See Rx Instructions .ROUTE .COMPLEX Qty: 90 1RF Dose Instruction: Take 1 tablet by mouth once daily Rx Instructions: Take 1 tablet by mouth once daily simvastatin 20 mg tablet 20 mg PO DAILY Qty: 90 1RF albuterol sulfate [Ventolin HFA] 90 mcg/actuation HFA aerosol inhaler 1 inh inhalation Q6H PRN (Reason: shortness of breath or wheezing) Qty: 6.7 1RF amitriptyline 50 mg tablet See Rx Instructions .ROUTE .COMPLEX Qty: 90 1RF Dose Instruction: TAKE 1 TABLET BY MOUTH ONCE DAILY AT 10 PM Rx Instructions: TAKE 1 TABLET BY MOUTH ONCE DAILY AT 10 PM Trelegy Ellipta 100-62.5-25 mcg blister with device 1 inh inhalation Q24H Qty: 60 3RF tramadol 50 mg tablet 50 mg PO .at Bedtime Qty: 21 0RF diazepam [Valium] 5 mg tablet 5 mg PO .COMPLEX PRN (Reason: anxiety) Qty: 2 0RF Rx Instructions: 5 mg orally 1 tablet 1 hour prior to MRI. May repeat times one 1/2-hour prior to MRI PRN; metformin 750 mg tablet extended release 24 hr See Rx Instructions .ROUTE .COMPLEX Qty: 60 5RF Dose Instruction: TAKE ONE TABLET BY MOUTH TWICE DAILY Rx Instructions: TAKE ONE TABLET BY MOUTH TWICE DAILY gabapentin 100 mg capsule See Rx Instructions .ROUTE .COMPLEX Qty: 90 0RF Dose Instruction: TAKE 1 CAPSULE BY MOUTH THREE TIMES DAILY Rx Instructions: TAKE 1 CAPSULE BY MOUTH THREE TIMES DAILY Discharge Orders: Discharge ED (Routine); Ordered 05/21/22 Ordered By: Lynn Lujan Referrals: Viviana Pringle DO [Primary Care Provider] - Discharge Diet: Usual diet Discharge Activity: Increase activity as tolerated Patient Instructions: Opioid Safety, Pain Management Activity Restrictions/Additional Instructions: Take medications as prescribed. Warm, moist heat recommended. Topical muscle rub recommended. If pain not improving in 7 to 10 days, follow-up with PCP to discuss further imaging. Return to the ER with new or worsening symptoms. Coding Level of Care Code ED Sales Development Manager for Maylin Fwanders Exam Detailed
[2022-05-21 15:12] VITALS: BP 152/78; PULSE 99; RESP 16; O2SAT 97
== END 2022-05-21 15:13 | disposition home or self-care (01) ==
PROVIDERS: Emergency Provider Physician Assistant; PCP Family Medicine
DX: G89.29 Other chronic pain (principal); M54.50 Low back pain, unspecified; Z79.84 Long term (current) use of oral hypoglycemic drugs; M43.17 Spondylolisthesis, lumbosacral region; J44.9 Chronic obstructive pulmonary disease, unspecified; E11.9 Type 2 diabetes mellitus without complications; E78.5 Hyperlipidemia, unspecified; I10 Essential (primary) hypertension; F17.210 Nicotine dependence, cigarettes, uncomplicated
CPT/HCPCS: 72100; 99283

== ENCOUNTER → 2022-06-02 10:37 | Outpatient (BNVA) | payer MEDICARE, MEDICAID, SELFPAY | PROVIDERS: PCP Family Medicine; Visit Provider Family Medicine | DX: M51.36 Other intervertebral disc degeneration, lumbar region (principal); R05.9 Cough, unspecified; J06.9 Acute upper respiratory infection, unspecified | CPT/HCPCS: 87426 ==

== ENCOUNTER → 2022-06-16 08:30 | Outpatient (BNVA) | payer MEDICARE, MEDICAID, SELFPAY | PROVIDERS: PCP Family Medicine; Visit Provider Family Medicine | DX: I10 Essential (primary) hypertension (principal); E78.5 Hyperlipidemia, unspecified; E11.9 Type 2 diabetes mellitus without complications; E11.40 Type 2 diabetes mellitus with diabetic neuropathy, unspecified | CPT/HCPCS: 80053; 80061; 82043; 83036; 85025 ==

== ENCOUNTER 2022-06-20 12:09 | Outpatient (CLI) | payer MEDICARE, MEDICAID, SELFPAY ==
--- NOTE | 2022-06-20 12:43 | MM_ITS ---
WS: [id number] VIEWS: MLO and CC views both breasts. 3D digital tomosynthesis is also included in this exam. Comparison made with prior exam of 09/29/2014. Findings: There was no sign of mass, architectural distortion or suspicious calcification in either breast. Th e breasts are heterogeneously dense MM/[place] [id number] Impression: BI-RADS: 2-Benign FOLLOW-UP: 1 Year Follow-up This mammogram was also analyzed by the Computer Aided Detection System R2 Imag e Manager Film.
== END 2022-06-20 12:10 | disposition home or self-care (01) ==
PROVIDERS: PCP Family Medicine; Visit Provider Family Medicine
DX: Z12.31 Encounter for screening mammogram for malignant neoplasm of breast (principal)
CPT/HCPCS: 77063; 77067

== ENCOUNTER 2022-07-25 06:00 | Outpatient (RCR) | payer MEDICARE, MEDICAID, SELFPAY | END 2022-07-28 23:59 | disposition home or self-care (01) | LOC: SPT 06:00 | PROVIDERS: Visit Provider Family Medicine | DX: M51.36 Other intervertebral disc degeneration, lumbar region (principal) | CPT/HCPCS: 97161 ==

== ENCOUNTER 2022-07-29 06:00 | Outpatient (RCR) | payer MEDICARE, MEDICAID, SELFPAY | END 2022-08-27 23:59 | disposition home or self-care (01) | LOC: SPT 06:00 | PROVIDERS: PCP Family Medicine; Visit Provider Family Medicine | DX: M51.36 Other intervertebral disc degeneration, lumbar region (principal) | CPT/HCPCS: 97110 ==

== ENCOUNTER → 2022-08-04 09:47 | Outpatient (BNVA) | payer MEDICARE, MEDICAID, SELFPAY | PROVIDERS: PCP Family Medicine; Visit Provider Family Medicine | DX: Z01.419 Encounter for gynecological examination (general) (routine) without abnormal findings (principal); F17.219 Nicotine dependence, cigarettes, with unspecified nicotine-induced disorders | CPT/HCPCS: 88175 ==

== ENCOUNTER 2022-08-14 07:22 | Outpatient (CLI) | payer MEDICARE, MEDICAID, SELFPAY ==
--- NOTE | 2022-08-14 07:30 | CT_ITS ---
WS: [id number] LDCT LUNG CANCER SCREENING HISTORY: screening TECHNIQUE: Axial imaging performed from the apices to 1 cm below the costophrenic angles. Coronal and sagittal reformats are submitted with axial MIP series. All CT scans at [facility] use at least one of these dose optimization techniques: automated exposure control; mA and/or kV adjustment per patient size (includes targeted exams where dose is matched to clinical indication); or iterativ e reconstruction. DLP: 87.89 mGy.cm DIvol: Mean CTDIvol: 2.00 (mGy) COMPARISON: None available. Diagnostic quality: Satisfactory Lungs: Irregular shaped groundglass nodule medial LEFT upper lobe measures 13 x 7 mm. No additional n odules or mass. No pneumonia. Mild emphysema. Heart: Normal size heart with no pericardial effusion.. Other findings: Mild atherosclerosis aorta. No aneurysm. Mildly dilated pulmonary artery to 3.7 cm. N o mediastinal or hilar adenopathy. Hepatic steatosis. No adrenal mass. CT/CT lung screening [id number] IMPRESSION: LUNG-RADS: 2S-Benign Appearance or Behavior with Significant Findings FOLLOW UP: 12 Month: Continue annual screening with LDCT OTHER FINDINGS (S MODIFIER): Dilated pulmonary artery consistent with pulmonary hypertension.
== END 2022-08-14 07:23 | disposition home or self-care (01) ==
LOC: RAD 07:25
PROVIDERS: PCP Family Medicine; Visit Provider Family Medicine
DX: Z12.2 Encounter for screening for malignant neoplasm of respiratory organs (principal); F17.219 Nicotine dependence, cigarettes, with unspecified nicotine-induced disorders
CPT/HCPCS: 71271; 88175

== ENCOUNTER 2022-10-29 19:12 | Emergency (ER) | payer MEDICARE, MEDICAID, SELFPAY ==
[2022-10-29 19:28] VITALS: BP 136/85; PULSE 98; RESP 18; TEMP 36.8; O2SAT 97; BMI 30.9
--- NOTE | 2022-10-29 19:28 | W.ED.SKABFB ---
HPI - Skin/Abscess/Foreign Bdy General: Chief complaint: Skin/Abscess/Foreign Body Stated complaint: bug bite / left leg Time Seen by Provider: 10/29/22 19:28 History of Present Illness: 56-year-old female comes in today with a insect bite to the right anterior lower leg. Patient was concerned due to some discoloration starting last 2 days. Patient reports insect bite was over a week old and then she noticed some redness and streaking from the bite today. Patient appears nontoxic. Patient appears in no pain. Associated symptoms: Deny fever(s) Review of Systems Const: Denies: fever(s) Musc: Denies: extremity pain Skin/Breast: Reports: pruritus and erythema PFSH ED PFSH: Medical History (Updated 10/29/22 @ 19:36 by JACKIE Beebe) Chronic back pain COPD (chronic obstructive pulmonary disease) COPD (chronic obstructive pulmonary disease) with acute bronchitis Diabetes mellitus, without long-term current use of insulin Dyslipidemia History of colon polyps Hypertension Insomnia Lumbar spondylolysis Lumbosacral spondylosis with radiculopathy Spondylolisthesis, lumbosacral region Surgical History H/O section x3 Family History Other CAD (coronary artery disease) Diabetes Hypertension Stroke Social History Smoking and tobacco status: current every day smoker cigarettes Packs smoked per day: 1 Alcohol intake: never Substance/Drug Use: never Marital status: Single Current occupational status: disabled Do you think of yourself as: Straight/Heterosexual Deja/Yarsani: Buddhist Physical Exam Const: COMMON NORMALS: alert HENMT: COMMON NORMALS: normocephalic HEAD & SCALP: normocephalic Neck/C-Spine: COMMON NORMALS: full ROM Resp: COMMON NORMALS: normal respiratory effort and clear to auscultation bilaterally AUSCULTATION: clear to auscultation bilaterally Cardio: COMMON NORMALS: regular rate and regular rhythm RATE: regular rate RHYTHM: regular rhythm Extremity: RIGHT LOWER EXTREMITY: Yes lower leg (2 cm area of redness with a central punctate lesion) Neuro: SENSORIUM/ORIENTATION: Yes alert Skin: LESIONS: lesion noted (Right lower leg) Course Vital Signs: Vital signs: Vital Signs Temperature 98.3 F 10/29/22 19:28 Pulse Rate 98 10/29/22 20:00 Respiratory Rate 18 10/29/22 19:28 Blood Pressure 136/85 10/29/22 20:00 Pulse Oximetry 97 10/29/22 20:00 MDM - Skin/Abscess/Foreign Bdy Medicial Decision Making Patient comes in today for complaints of a insect bite to the right lower leg with increasing redness and itching. On exam there is 2 cm area of redness with irregular borders to the right lower leg. There is a punctate ecchymotic lesion to the central part of the redness. No significant swelling is noted. No fluctuance is noted to the lesion. Differential diagnosis includes but not limited to folliculitis, infected insect bite, local reaction to insect bite. We will go ahead and cover the patient with some antibiotics which will be doxycycline 100 mg twice a day for the next 7 days. Patient will also be given some steroid cream to help with the itching and irritation of the wound. Recommend follow-up with primary care for further evaluation and need for wound care if needed. Patient stated understanding and agreed to plan. Discharge Plan Discharge Patient Disposition: Home Clinical Impression: Infected insect bite Qualifiers: Encounter type: initial encounter Qualified Code(s): W57.XXXA - Bitten or stung by nonvenomous insect and other nonvenomous arthropods, initial encounter Condition: Stable Prescriptions: New doxycycline monohydrate 100 mg capsule 100 mg PO BID 14 Days Qty: 28 0RF triamcinolone acetonide 0.1 % cream 1 applic topical BID Qty: 15 0RF No Action albuterol sulfate [Ventolin HFA] 90 mcg/actuation HFA aerosol inhaler 1 inh inhalation Q6H PRN (Reason: shortness of breath or wheezing) Qty: 8.5 3RF methylprednisolone [Medrol (Elbert)] 4 mg tablets,dose pack See Rx Instructions PO PER PKG DIR Qty: 21 0RF Rx Instructions: PO PER PKG DIR varenicline [Chantix Continuing Month Box] 1 mg tablet 1 mg PO BID Qty: 56 0RF fluticasone propion-salmeterol [Advair Diskus] 250-50 mcg/dose blister with device 1 inh inhalation BID Qty: 60 5RF varenicline [Chantix Starting Month Box] 0.5 mg (11)- 1 mg (42) tablets,dose pack See Rx Instructions PO PER PKG DIR Qty: 53 0RF Rx Instructions: PO PER PKG DIR tramadol 50 mg tablet 50 mg PO .at Bedtime Qty: 21 0RF diazepam [Valium] 5 mg tablet 5 mg PO .COMPLEX PRN (Reason: anxiety) Qty: 2 0RF Rx Instructions: 5 mg orally 1 tablet 1 hour prior to MRI. May repeat times one 1/2-hour prior to MRI PRN; tizanidine 4 mg tablet See Rx Instructions .ROUTE .COMPLEX Qty: 180 0RF Hold Instructions: Resume on 06/19/22. hold while taking robaxin Dose Instruction: Take 1 tablet by mouth three times daily as needed for muscle spasm Rx Instructions: Take 1 tablet by mouth three times daily as needed for muscle spasm simvastatin 20 mg tablet 20 mg PO DAILY Qty: 90 1RF amitriptyline 50 mg tablet See Rx Instructions .ROUTE .COMPLEX Qty: 90 0RF Dose Instruction: TAKE 1 TABLET BY MOUTH ONCE DAILY AT 10PM Rx Instructions: TAKE 1 TABLET BY MOUTH ONCE DAILY AT 10PM lisinopril 20 mg tablet See Rx Instructions .ROUTE .COMPLEX Qty: 90 0RF Dose Instruction: Take 1 tablet by mouth once daily Rx Instructions: Take 1 tablet by mouth once daily meloxicam 15 mg tablet See Rx Instructions .ROUTE .COMPLEX Qty: 90 0RF Dose Instruction: Take 1 tablet by mouth once daily Rx Instructions: Take 1 tablet by mouth once daily Invokana 300 mg tablet See Rx Instructions .ROUTE .COMPLEX Qty: 90 0RF Dose Instruction: Take 1 tablet by mouth once daily Rx Instructions: Take 1 tablet by mouth once daily metformin 500 mg tablet extended release 24 hr See Rx Instructions .ROUTE .COMPLEX Qty: 120 0RF Dose Instruction: Take 2 tablets by mouth twice daily Rx Instructions: Take 2 tablets by mouth twice daily gabapentin 300 mg capsule See Rx Instructions .ROUTE .COMPLEX Qty: 90 0RF Dose Instruction: TAKE 1 CAPSULE BY MOUTH THREE TIMES DAILY Rx Instructions: TAKE 1 CAPSULE BY MOUTH THREE TIMES DAILY methocarbamol 750 mg tablet 750 mg PO Q8H Qty: 90 1RF Discharge Orders: Discharge ED (Routine); Ordered 10/29/22 Ordered By: Cristhian Garcia Referrals: Viviana Pringle DO [Primary Care Provider] - Discharge Diet: Usual diet Discharge Activity: Increase activity as tolerated Patient Instructions: Insect Bite or Sting (ED) Activity Restrictions/Additional Instructions: Take antibiotic as directed. Use triamcinolone cream twice a day to the area for itching and discomfort. Follow-up with primary care in 3 to 5 days for recheck. Return to ED for high fever greater than 100.4, increasing redness and swelling of the leg, or new concerns. Coding Level of Care Code ED Pouncing Lathe Operator for Maylin Haas
[2022-10-29] MEDS: doxycycline 100 mg Tablet PO (19:43)
[2022-10-29 20:00] VITALS: BP 136/85; PULSE 98; O2SAT 97
== END 2022-10-29 20:00 | disposition home or self-care (01) ==
PROVIDERS: Emergency Provider Nurse Practitioner Family; PCP Family Medicine
DX: S80.861A Insect bite (nonvenomous), right lower leg, initial encounter (principal); W57.XXXA Bitten or stung by nonvenomous insect and other nonvenomous arthropods, initial encounter
CPT/HCPCS: 99283

== ENCOUNTER 2022-12-27 12:40 | Emergency (ER) | payer MEDICARE, MEDICAID, SELFPAY ==
[2022-12-27 13:11] VITALS: BP 119/77; PULSE 97; RESP 18; TEMP 36.8; O2SAT 95; BMI 31.3
--- NOTE | 2022-12-27 14:43 | XR_ITS ---
WS: [id number] Exam: XR hip LT 2-3V wo/w pel* [id number] Date/Time of Exam: 12/27/2022 2:58 PM Reason For Exam: hip pain/injury; one view pelvis too please No acute fracture. Mild degenerative change. Normal soft tissues. No acute pelvic fracture demonstrat ed. Fusion hardware at the lumbosacral junction with associated laminectomy. IMPRESSION: 1. No acute LEFT hip fracture or pelvic fracture.
--- NOTE | 2022-12-27 14:43 | ED_ITS ---
HPI - Extremity Problem General: Chief complaint: Extremity Injury, Lower Stated complaint: hip injury Time Seen by Provider: 12/27/22 14:23 [facility] ED PFSH: Medical History (Updated 11/06/22 @ 00:01 by CAR Lagunas) Chronic back pain COPD (chronic obstructive pulmonary disease) COPD (chronic obstructive pulmonary disease) with acute bronchitis Diabetes mellitus, without long-term current use of insulin Dyslipidemia History of colon polyps Hypertension Insomnia Lumbar spondylolysis Lumbosacral spondylosis with radiculopathy Spondylolisthesis, lumbosacral region Surgical History H/O section x3 Family History Other CAD (coronary artery disease) Diabetes Hypertension Stroke Social History Smoking and tobacco status: current every day smoker cigarettes Packs smoked per day: 1 Alcohol intake: never Substance/Drug Use: never Marital status: Single Current occupational status: disabled Do you think of yourself as: Straight/Heterosexual Deja/Yarsanism: Sabianism Course Vital Signs: Vital signs: Vital Signs Temperature 98.2 F 12/27/22 13:11 Pulse Rate 97 12/27/22 13:11 Respiratory Rate 18 12/27/22 13:11 Blood Pressure 119/77 12/27/22 13:11 Pulse Oximetry 95 12/27/22 13:11 Oxygen Delivery Me thod Room Air 12/27/22 13:11 Discharge Plan Discharge Condition: Stable Prescriptions: No Action albuterol sulfate [Ventolin HFA] 90 mcg/actuation HFA aerosol inhaler 1 inh inhalation Q6H PRN (Reason: shortness of breath or wheezing) Qty: 8.5 3RF methylprednisolone [Medrol (Elbert)] 4 mg tablets,dose pack See Rx Instructions PO PER PKG DIR Qty: 21 0RF Rx Instructions: PO PER PKG DIR varenicline [Chantix Continuing Month Box] 1 mg tablet 1 mg PO BID Qty: 56 0RF fluticasone propion-salmeterol [Advair Diskus] 250-50 mcg/dose blister with device 1 inh inhalation BID Qty: 60 5RF varenicline [Chantix Starting Month Box] 0.5 mg (11)- 1 mg (42) tablets,dose pack See Rx Instructions PO PER PKG DIR Qty: 53 0RF Rx Instructions: PO PER PKG DIR tramadol 50 mg tablet 50 mg PO .at Bedtime Qty: 21 0RF diazepam [Valium] 5 mg tablet 5 mg PO .COMPLEX PRN (Reason: anxiety) Qty: 2 0RF Rx Instructions: 5 mg orally 1 tablet 1 hour prior to MRI. May repeat times one 1/2-hour prior to MRI PRN; tizanidine 4 mg tablet See Rx Instructions .ROUTE .COMPLEX Qty: 180 0RF Hold Instructions: Resume on 06/19/22. hold while taking robaxin Dose Instruction: Take 1 tablet by mouth three times daily as needed for muscle spasm Rx Instructions: Take 1 tablet by mouth three times daily as needed for muscle spasm amitriptyline 50 mg tablet See Rx Instructions .ROUTE .COMPLEX Qty: 90 0RF Dose Instruction: TAKE 1 TABLET BY MOUTH ONCE DAILY AT 10PM Rx Instructions: TAKE 1 TABLET BY MOUTH ONCE DAILY AT 10PM lisinopril 20 mg tablet See Rx Instructions .ROUTE .COMPLEX Qty: 90 0RF Dose Instruction: Take 1 tablet by mouth once daily Rx Instructions: Take 1 tablet by mouth once daily gabapentin 300 mg capsule See Rx Instructions .ROUTE .COMPLEX Qty: 90 0RF Dose Instruction: TAKE 1 CAPSULE BY MOUTH THREE TIMES DAILY Rx Instructions: TAKE 1 CAPSULE BY MOUTH THREE TIMES DAILY simvastatin 20 mg tablet See Rx Instructions .ROUTE .COMPLEX Qty: 90 0RF Dose Instruction: Take 1 tablet by mouth once daily Rx Instructions: Take 1 tablet by mouth once daily meloxicam 15 mg tablet See Rx Instructions .ROUTE .COMPLEX Qty: 90 0RF Dose Instruction: Take 1 tablet by mouth once daily Rx Instructions: Take 1 tablet by mouth once daily Invokana 300 mg tablet See Rx Instructions .ROUTE .COMPLEX Qty: 90 0RF Dose Instruction: Take 1 tablet by mouth once daily Rx Instructions: Take 1 tablet by mouth once daily metformin 500 mg tablet extended release 24 hr See Rx Instructions .ROUTE .COMPLEX Qty: 120 0RF Dose Instruction: Take 2 tablets by mouth twice daily Rx Instructions: Take 2 tablets by mouth twice daily methocarbamol 750 mg tablet 750 mg PO Q8H Qty: 90 1RF triamcinolone acetonide 0.1 % cream 1 applic topical BID Qty: 15 0RF Referrals: Lambert,Viviana, DO [Primary Care Provider] - Coding Level of Care Code ED Weight Loss Centre Manager for Maylin Haas
--- NOTE | 2022-12-27 14:44 | W.ED.LOWEXIN ---
HPI - Extremity Injury (Lower) General: Chief Complaint: Extremity Injury, Lower Stated Complaint: hip injury Time Seen by Provider: 12/27/22 14:23 Source: patient Mode of arrival: ambulatory Limitations: no limitations History of Present Illness: Patient is a 57-year-old female presents to ED today for evaluation of left hip pain. Patient states yesterday she stepped wrong and heard a pop in her left hip and felt like the hip dislocated. Patient states since then she has been able to bear weight on the extremity without's but states it is painful to do so. She has not noticed any ecchymosis to the joint. She has not noticed any erythema or warmth. No swelling to the lower extremity. She is not complaining of any back pain. MD complaint: hip injury Onset (ago): day(s) (yesterday) Injury: Left: hip Place: home Severity: moderate Relieving factors: immobilization Exacerbating factors: weight bearing Associated symptoms: Reports no associated symptoms Other symptoms: none Review of Systems Const: Denies: fever(s), chills or body aches Card: Denies: chest pain Resp: Denies: dyspnea GI: Denies: abdominal pain : Denies: flank pain, dysuria or hematuria Musc: Reports: joint pain (L hip); Denies: neck pain, back pain, extremity pain, extremity swelling, joint swelling, joint redness, joint warmth or limited range of motion Skin/Breast: Denies: rash Neuro: Denies: numbness in extremities, weakness in extremities, sensory changes or difficulty walking [facility] ED PFSH: Medical History Chronic back pain COPD (chronic obstructive pulmonary disease) COPD (chronic obstructive pulmonary disease) with acute bronchitis Diabetes mellitus, without long-term current use of insulin Dyslipidemia History of colon polyps Hypertension Insomnia Lumbar spondylolysis Lumbosacral spondylosis with radiculopathy Spondylolisthesis, lumbosacral region Surgical History H/O section x3 Family History Other CAD (coronary artery disease) Diabetes Hypertension Stroke Social History Smoking and tobacco status: current every day smoker cigarettes Packs smoked per day: 1 Alcohol intake: never Substance/Drug Use: never Marital status: Single Current occupational status: disabled Do you think of yourself as: Straight/Heterosexual Deja/Lutheran: [employer] Physical Exam Const: COMMON NORMALS: no acute distress, patient oriented x3, no limitations, healthy appearing, alert and well nourished Back/Pelvis: COMMON NORMALS: thoracic and lumbar spine normal to inspection, no thoracic nor lumbar tenderness and thoraco-lumbar ROM normal Extremity: COMMON NORMALS: normal to inspection, full ROM, capillary refill normal, no joint enlargement, no clubbing, cyanosis or edema, no calf tenderness and no pedal edema GENERAL: Yes normal exam except as noted LEFT LOWER EXTREMITY: Yes hip joint (TTP posterio-lateral hip joint) Left hip: Yes inspection (normal), Yes ROM (normal ) and Yes neurovascular exam (normal) Neuro: COMMON NORMALS: patient oriented x3, moves all extremities, no focal motor deficits and no sensory deficits noted SENSORIUM/ORIENTATION: Yes alert Course Vital Signs: Vital signs: Vital Signs Temperature 98.2 F 12/27/22 13:11 Pulse Rate 97 12/27/22 13:11 Respiratory Rate 18 12/27/22 13:11 Blood Pressure 119/77 12/27/22 13:11 Pulse Oximetry 95 12/27/22 13:11 Oxygen Delivery Me thod Room Air 12/27/22 13:11 MDM - Extremity Injury (Lower) Medical Decision Making XR negative. No suspicion for emergent process based on history and physical exam. She has meloxicam she can take prn. Will place her on steroids and muscle relaxers and recommend PCP follow up in 1-2 weeks if symptoms persist. Of note patient has lots of steroids/muscle relaxers currently on med list but she confirms these are old and she is not currently taking. Med rec has not been updated by pharmacy. Discharge Plan Discharge Patient Disposition: Home Clinical Impression: Injury of hip, left Qualifiers: Encounter type: initial encounter Qualified Code(s): S79.912A - Unspecified injury of left hip, initial encounter Condition: Stable Prescriptions: Continued methocarbamol 750 mg tablet 750 mg PO Q8H Qty: 15 1RF methylprednisolone [Medrol (Elbert)] 4 mg tablets,dose pack See Rx Instructions PO PER PKG DIR Qty: 21 0RF Rx Instructions: PO PER PKG DIR No Action albuterol sulfate [Ventolin HFA] 90 mcg/actuation HFA aerosol inhaler 1 inh inhalation Q6H PRN (Reason: shortness of breath or wheezing) Qty: 8.5 3RF varenicline [Chantix Continuing Month Box] 1 mg tablet 1 mg PO BID Qty: 56 0RF fluticasone propion-salmeterol [Advair Diskus] 250-50 mcg/dose blister with device 1 inh inhalation BID Qty: 60 5RF varenicline [Chantix Starting Month Box] 0.5 mg (11)- 1 mg (42) tablets,dose pack See Rx Instructions PO PER PKG DIR Qty: 53 0RF Rx Instructions: PO PER PKG DIR tramadol 50 mg tablet 50 mg PO .at Bedtime Qty: 21 0RF diazepam [Valium] 5 mg tablet 5 mg PO .COMPLEX PRN (Reason: anxiety) Qty: 2 0RF Rx Instructions: 5 mg orally 1 tablet 1 hour prior to MRI. May repeat times one 1/2-hour prior to MRI PRN; tizanidine 4 mg tablet See Rx Instructions .ROUTE .COMPLEX Qty: 180 0RF Hold Instructions: Resume on 06/19/22. hold while taking robaxin Dose Instruction: Take 1 tablet by mouth three times daily as needed for muscle spasm Rx Instructions: Take 1 tablet by mouth three times daily as needed for muscle spasm amitriptyline 50 mg tablet See Rx Instructions .ROUTE .COMPLEX Qty: 90 0RF Dose Instruction: TAKE 1 TABLET BY MOUTH ONCE DAILY AT 10PM Rx Instructions: TAKE 1 TABLET BY MOUTH ONCE DAILY AT 10PM lisinopril 20 mg tablet See Rx Instructions .ROUTE .COMPLEX Qty: 90 0RF Dose Instruction: Take 1 tablet by mouth once daily Rx Instructions: Take 1 tablet by mouth once daily gabapentin 300 mg capsule See Rx Instructions .ROUTE .COMPLEX Qty: 90 0RF Dose Instruction: TAKE 1 CAPSULE BY MOUTH THREE TIMES DAILY Rx Instructions: TAKE 1 CAPSULE BY MOUTH THREE TIMES DAILY simvastatin 20 mg tablet See Rx Instructions .ROUTE .COMPLEX Qty: 90 0RF Dose Instruction: Take 1 tablet by mouth once daily Rx Instructions: Take 1 tablet by mouth once daily meloxicam 15 mg tablet See Rx Instructions .ROUTE .COMPLEX Qty: 90 0RF Dose Instruction: Take 1 tablet by mouth once daily Rx Instructions: Take 1 tablet by mouth once daily Invokana 300 mg tablet See Rx Instructions .ROUTE .COMPLEX Qty: 90 0RF Dose Instruction: Take 1 tablet by mouth once daily Rx Instructions: Take 1 tablet by mouth once daily metformin 500 mg tablet extended release 24 hr See Rx Instructions .ROUTE .COMPLEX Qty: 120 0RF Dose Instruction: Take 2 tablets by mouth twice daily Rx Instructions: Take 2 tablets by mouth twice daily triamcinolone acetonide 0.1 % cream 1 applic topical BID Qty: 15 0RF Discharge Orders: Discharge ED (Routine); Ordered 12/27/22 Ordered By: Jeanine Perez Referrals: Viviana Pringle DO [Primary Care Provider] - Patient Instructions: Hip Sprain (ED), Hip Pain (ED) Coding Level of Care Code ED Manager Shipping for Maylin Haas
[2022-12-27 15:34] VITALS: PULSE 81; RESP 18; O2SAT 99
== END 2022-12-27 15:35 | disposition home or self-care (01) ==
PROVIDERS: Emergency Provider Physician Assistant; PCP Family Medicine
DX: S79.912A Unspecified injury of left hip, initial encounter (principal); Z79.84 Long term (current) use of oral hypoglycemic drugs; J44.9 Chronic obstructive pulmonary disease, unspecified; E11.9 Type 2 diabetes mellitus without complications; E78.5 Hyperlipidemia, unspecified; I10 Essential (primary) hypertension; F17.210 Nicotine dependence, cigarettes, uncomplicated; X50.1XXA Overexertion from prolonged static or awkward postures, initial encounter
CPT/HCPCS: 73502; 99283

== ENCOUNTER → 2023-01-05 11:19 | Outpatient (BNVA) | payer MEDICARE, MEDICAID, SELFPAY | PROVIDERS: PCP Family Medicine; Visit Provider Family Medicine | DX: E11.9 Type 2 diabetes mellitus without complications (principal); F41.1 Generalized anxiety disorder | CPT/HCPCS: 80053; 83036 ==

== ENCOUNTER 2023-03-26 13:30 | Outpatient (CLI) | payer MEDICARE, MEDICAID, SELFPAY ==
--- NOTE | 2023-03-26 14:00 | XR_ITS ---
WS: [email or web address] SCREENING DEXA SCAN [facility] CLINICAL INFORMATION: postmenopausal COMPARISON: None. FINDINGS: The LEFT forearm bone mineral density measures 0.86. This corresponds to a T score score of -0.2 and Z score of 0.3. Left femoral neck bone mineral density measures 0.991 g/cm2. This corresponds to a T score of -0.1 an d Z score of 0.2. Right femoral neck bone mineral density measures 1.000 g/cm2. This corresponds to a T score -0.1of an d Z score of 0.3. Mean femoral neck bone mineral density measures 0.995 g/cm2. This corresponds to a T score of -0.1 an d Z score of 0.2. IMPRESSION: Normal bone mineralization LEFT forearm and femoral necks.. Patient's FRAX calculated 10 year probability for major osteoporotic fracture is 10.0% and osteoporot ic hip fracture is 0.6%.
== END 2023-03-26 13:31 | disposition home or self-care (01) ==
LOC: RAD 13:30
PROVIDERS: PCP Family Medicine; Visit Provider Family Medicine
DX: Z78.0 Asymptomatic menopausal state (principal)
CPT/HCPCS: 77080

== ENCOUNTER 2023-06-22 11:13 | Outpatient (CLI) | payer MEDICARE, MEDICAID, SELFPAY ==
--- NOTE | 2023-06-22 11:14 | MM_ITS ---
WS: [id number] BILATERAL SCREENING DIGITAL TOMOSYNTHESIS MAMMOGRAM WITH CAD HISTORY: SCREENING COMPARISON: 06/20/2022, 09/29/2014 Bilateral CC and MLO views with tomosynthesis and synthetic mammography submitted. Computer aided det ection analyzed. Breast composition: There are scattered areas of fibroglandular density. No suspicious masses, microc alcifications or architectural distortion. Benign calcifications in the anterior RIGHT breast. IMPRESSION: MM/[place] [id number] BI-RADS: 2-Benign FOLLOW UP: 1 Year Follow-up
== END 2023-06-22 11:14 | disposition home or self-care (01) ==
LOC: RAD 11:14
PROVIDERS: PCP Family Medicine; Visit Provider Family Medicine
DX: R92.323 Mammographic fibroglandular density, bilateral breasts (principal); Z12.31 Encounter for screening mammogram for malignant neoplasm of breast
CPT/HCPCS: 77063; 77067

== ENCOUNTER → 2023-07-19 10:24 | Outpatient (BNVA) | payer MEDICARE, MEDICAID, SELFPAY | PROVIDERS: PCP Family Medicine; Visit Provider Family Medicine | DX: F41.1 Generalized anxiety disorder (principal); E11.9 Type 2 diabetes mellitus without complications | CPT/HCPCS: 80053; 80061; 83036 ==

== ENCOUNTER → 2023-10-17 08:47 | Outpatient (CLI) | payer MEDICARE, MEDICAID, SELFPAY ==
--- NOTE | 2023-10-17 09:00 | CT_ITS ---
WS: [id number] LDCT LUNG CANCER SCREENING TECHNIQUE: Noncontrast CT of the chest with coronal and sagittal reformatted images. CLINICAL INFORMATION: screening COMPARISON: None. DLP: 72.30 mGy.cm DIvol: Mean CTDIvol: 1.70 (mGy) All CT scans at [facility] use at least one of these dose optimization techniques: automat ed exposure control; mA and/or kV adjustment per patient size (includes targeted exams where dose is matched to clinical indication); or iterative reconstruction. FINDINGS: Slight subsegmental atelectasis in the lung bases. No suspicious pulmonary parenchymal opac ities. Aortic calcification. Normal caliber thoracic aorta. Minimal coronary calcification. No mediastinal o r hilar lymphadenopathy. No axillary lymphadenopathy. Adrenal glands are normal. Splenic artery calcification. Normal GE junction. Mild thoracic curve. Mil d thoracic kyphosis. Moderate spondylitic changes thoracic spine. CT/CT lung screening [id number] IMPRESSION: LUNG-RADS: 1-Negative FOLLOW UP: 12 Month: Continue annual screening with LDCT
== END | disposition home or self-care (01) ==
LOC: RAD 08:48
PROVIDERS: PCP Family Medicine; Visit Provider Family Medicine
DX: Z12.2 Encounter for screening for malignant neoplasm of respiratory organs (principal); F17.219 Nicotine dependence, cigarettes, with unspecified nicotine-induced disorders; I70.0 Atherosclerosis of aorta; D73.89 Other diseases of spleen; M47.814 Spondylosis without myelopathy or radiculopathy, thoracic region
CPT/HCPCS: 71271

== ENCOUNTER → 2023-10-23 08:27 | Outpatient (BNVA) | payer MEDICARE, MEDICAID, SELFPAY | PROVIDERS: PCP Family Medicine; Visit Provider Family Medicine | DX: E11.9 Type 2 diabetes mellitus without complications (principal); M51.36 Other intervertebral disc degeneration, lumbar region; J20.8 Acute bronchitis due to other specified organisms; B96.89 Other specified bacterial agents as the cause of diseases classified elsewhere; I10 Essential (primary) hypertension; E78.5 Hyperlipidemia, unspecified; F17.219 Nicotine dependence, cigarettes, with unspecified nicotine-induced disorders; Z79.899 Other long term (current) drug therapy | CPT/HCPCS: 80053; 82043; 83036; 85025 ==

== ENCOUNTER 2023-12-11 09:53 | Outpatient (CLI) | payer MEDICARE, MEDICAID, SELFPAY | END 2023-12-11 09:54 | disposition home or self-care (01) | PROVIDERS: PCP Family Medicine; Visit Provider Family Medicine | DX: G47.33 Obstructive sleep apnea (adult) (pediatric) (principal) | CPT/HCPCS: 94762 ==

== ENCOUNTER → 2023-12-20 14:44 | Outpatient (BNVA) | payer MEDICARE, MEDICAID, SELFPAY | DX: I10 Essential (primary) hypertension (principal); E11.9 Type 2 diabetes mellitus without complications; E78.5 Hyperlipidemia, unspecified | CPT/HCPCS: 80053; 80061; 83036 ==

== ENCOUNTER → 2024-03-26 13:34 | Outpatient (BNVA) | payer MEDICARE, SELFPAY | DX: E11.9 Type 2 diabetes mellitus without complications (principal) | CPT/HCPCS: 80053; 83036 ==

== ENCOUNTER → 2024-06-24 13:38 | Outpatient (BNVA) | payer MEDICARE, MEDICAID, SELFPAY | PROVIDERS: Visit Provider Orthopaedic Surgery | DX: M54.9 Dorsalgia, unspecified (principal); Z98.1 Arthrodesis status | CPT/HCPCS: 72110; 99213 ==

== ENCOUNTER 2024-06-25 13:39 | Outpatient (CLI) | payer MEDICARE, MEDICAID, SELFPAY | END 2024-06-25 13:40 | disposition home or self-care (01) | LOC: SLEEP 13:42 | DX: G47.33 Obstructive sleep apnea (adult) (pediatric) (principal) | CPT/HCPCS: G0399 ==

== ENCOUNTER 2024-07-03 10:46 | Outpatient (CLI) | payer MEDICARE, MEDICAID, SELFPAY ==
--- NOTE | 2024-07-03 11:00 | MR_ITS ---
WS: [id number] MRI LUMBAR SPINE NONCONTRAST TECHNIQUE: Sagittal T1, T2 and STIR imaging. Axial T1 and T2 imaging. CLINICAL INFORMATION: Back Pain COMPARISON: MRI 2019 FINDINGS: Mild lumbar curve. No acute compression. Grade 1 anterolisthesis L5 on S1 appears relatively stable. Pedicle screw fixation with laminectomy defects. Postoperative changes are new since 2019. L1-L2: Mild annular bulging. Narrowing of the subarticular recess. Mild facet arthropathy. Foramen are patent. L2-L3: Mild annular bulging. Narrowing of the LEFT subarticular recess. Proximal LEFT foraminal protrusion slightly impinges the exiting LEFT L2 nerve root. RIGHT foramen is patent. Mild facet arthropathy. L3-L4: Mild annular bulging. Mild central canal stenosis. Moderate impingement on the subarticular recess RIGHT greater than LEFT. Small bilateral foraminal protrusion slightly impinges the exiting LEFT L3 nerve roots bilaterally. Moderate facet arthropathy. L4-L5: Mild annular bulging. Narrowing of the subarticular recess. Foramen are patent. Moderate facet arthropathy. L5-S1: Postoperative changes pedicle screw fixation with interbody fusion. Grade 1 anterolisthesis. Severe LEFT and moderate RIGHT foraminal narrowing. Spinal canal is patent. Visualized pelvic bony structures: Normal. Paravertebral soft tissues: Normal. Hepatomegaly. MR/MR lumbar spine wo con* [id number] IMPRESSION: 1. Mild lumbar curve. No acute compression. 2. Pedicle screw fixation L5-S1 with interbody fusion is new from previous. Gr bobby 1 anterolisthesis measures 10 mm measuring approximately 9 mm previously by my measurements 3. Shallow central protrusion L2-3 with mild LEFT foraminal narrowing and slig ht contact of the exiting L2 nerve root. 4. Mild central canal stenosis L3-4 with impingement subarticular recess bilat erally. Bilateral foraminal protrusions with impingement on the LEFT greater th an RIGHT exiting L3 nerve roots. Mild central canal stenosis. 5. Mild central canal stenosis L4-5 with moderate impingement on the subarticu lar recess. 6. Severe LEFT and moderate RIGHT foraminal narrowing L5-S1.
== END 2024-07-03 10:47 | disposition home or self-care (01) ==
PROVIDERS: Visit Provider Orthopaedic Surgery
DX: M48.061 Spinal stenosis, lumbar region without neurogenic claudication (principal); M43.8X6 Other specified deforming dorsopathies, lumbar region; Z98.1 Arthrodesis status; R93.7 Abnormal findings on diagnostic imaging of other parts of musculoskeletal system; M51.26 Other intervertebral disc displacement, lumbar region; M48.07 Spinal stenosis, lumbosacral region; M51.369 Other intervertebral disc degeneration, lumbar region without mention of lumbar back pain or lower extremity pain; M47.896 Other spondylosis, lumbar region; R16.0 Hepatomegaly, not elsewhere classified
CPT/HCPCS: 72148

== ENCOUNTER → 2024-07-10 08:52 | Outpatient (BNVA) | payer MEDICARE, MEDICAID, SELFPAY | PROVIDERS: Visit Provider Orthopaedic Surgery | DX: Z09 Encounter for follow-up examination after completed treatment for conditions other than malignant neoplasm (principal) | CPT/HCPCS: 99213 ==

== ENCOUNTER → 2024-07-25 10:56 | Outpatient (BNVA) | payer MEDICARE, MEDICAID, SELFPAY | PROVIDERS: PCP Family Medicine; Visit Provider Family Medicine | DX: E11.9 Type 2 diabetes mellitus without complications (principal); R53.83 Other fatigue | CPT/HCPCS: 80053; 83036; 84443 ==

== ENCOUNTER 2024-07-29 12:01 | Outpatient (RCR) | payer MEDICARE, SELFPAY | END 2024-08-22 10:03 | disposition home or self-care (01) | LOC: SPT 12:01 | PROVIDERS: Visit Provider Orthopaedic Surgery | DX: M54.9 Dorsalgia, unspecified (principal); G89.29 Other chronic pain | CPT/HCPCS: 97161 ==

== ENCOUNTER 2024-07-29 14:32 | Outpatient (CLI) | payer MEDICARE, SELFPAY ==
--- NOTE | 2024-07-29 15:20 | MM_ITS ---
WS: [email or web address] BILATERAL 3D TOMOSYNTHESIS DIGITAL SCREENING MAMMOGRAPHY WITH CAD CLINICAL INFORMATION: screening HISTORY: Screening mammogram. No current complaints. COMPARISON: 2023 TECHNIQUE: Bilateral CC and MLO views. FINDINGS: Scattered fibroglandular densities bilaterally. No suspicious focal mass, asymmetry, calcifications, or architectural distortion. No evidence of malignancy. A few incidental punctate calcifications. MM/MM scr tomosynthesis [id number] IMPRESSION: DENSITY: There are scattered areas of fibroglandular density. BI-RADS: 2 - Benign. FOLLOW UP: 1 Year Follow-up Recommend return to annual screening mammography.
== END 2024-07-29 14:33 | disposition home or self-care (01) ==
PROVIDERS: PCP Family Medicine; Visit Provider Family Medicine
DX: Z12.31 Encounter for screening mammogram for malignant neoplasm of breast (principal); R92.323 Mammographic fibroglandular density, bilateral breasts; R92.1 Mammographic calcification found on diagnostic imaging of breast
CPT/HCPCS: 77063; 77067

== ENCOUNTER → 2024-08-27 09:34 | Outpatient (BNVA) | payer MEDICARE, SELFPAY | PROVIDERS: PCP Family Medicine; Visit Provider Specialist | DX: M65.342 Trigger finger, left ring finger (principal); Z01.818 Encounter for other preprocedural examination | CPT/HCPCS: 36415; 73130; 80053; 81001; 85025; 99204 ==

== ENCOUNTER → 2024-11-20 11:02 | Outpatient (BNVA) | payer MEDICARE, SELFPAY | PROVIDERS: PCP Family Medicine; Visit Provider Family Medicine | DX: E11.9 Type 2 diabetes mellitus without complications (principal) | CPT/HCPCS: 80053; 82043; 83036 ==

== ENCOUNTER 2024-12-02 12:07 | Outpatient (CLI) | payer MEDICARE, SELFPAY ==
--- NOTE | 2024-12-02 12:30 | CT_ITS ---
WS: [id number] LDCT LUNG CANCER SCREENING HISTORY: screening TECHNIQUE: Axial imaging performed from the apices to 1 cm below the costophrenic angles. Coronal and sagittal reformats are submitted with axial MIP series. All CT scans at [facility] use at least one of these dose optimization techniques: automated exposure control; mA and/or kV adjustment per patient size (includes targeted exams where dose is matched to clinical indication); or iterative reconstruction. DLP: 82.59 mGy.cm DIvol: Mean CTDIvol: 1.90 (mGy) COMPARISON: 10/17/2023 Diagnostic quality: Satisfactory Lungs: Mild pulmonary hyperexpansion. Stable micronodule RIGHT apex. No new or enlarging nodule. No mass. No endobronchial lesions. Heart: Normal size heart with no pericardial effusion.. Other findings: Mild atherosclerosis aorta. No pericardial or pleural effusions. Very small hiatal hernia. No adrenal mass. CT/CT lung screening [id number] IMPRESSION: LUNG-RADS: 2-Benign Appearance or Behavior FOLLOW UP: 12 Month: Continue annual screening with LDCT OTHER FINDINGS (S MODIFIER): None.
== END 2024-12-02 12:08 | disposition home or self-care (01) ==
PROVIDERS: PCP Family Medicine; Visit Provider Family Medicine
DX: Z12.2 Encounter for screening for malignant neoplasm of respiratory organs (principal); F17.219 Nicotine dependence, cigarettes, with unspecified nicotine-induced disorders; J94.8 Other specified pleural conditions
CPT/HCPCS: 71271

== ENCOUNTER → 2025-02-16 09:06 | Outpatient (BNVA) | payer MEDICARE, SELFPAY | PROVIDERS: PCP Family Medicine; Visit Provider Family Medicine | DX: E11.9 Type 2 diabetes mellitus without complications (principal) | CPT/HCPCS: 80053; 80061; 83036 ==